=== PATIENT | male | born 1935 | race Caucasian/White ===

== ENCOUNTER 2016-09-06 08:29 | Observation (INO) | payer MEDICARE ==
[2016-09-06] VITALS (9 sets, daily range): BP systolic 115–178; BP diastolic 47–71; PULSE 32–75; RESP 15–20; O2SAT 96–100
[~2016-09-06] VITALS: Ht 172.7 cm; Wt 92.2 kg
[~2016-09-06 08:29] MED LIST: ASP81TEC PO; ATOR80TA PO; GLU500 PO; LEVO750T9 PO; MTP50TCR PO; ZES20 PO
--- NOTE | 2016-09-06 08:35 | ED.REPORT ---
HPI-Chest Pain 40 and Over Date of Service Sep 06, 2016 ED Provider: Pelon Gambino Patient is a 81 y/o male w/ a hx DM, HTN, hyperlipidemia, and prostate cancer, on warfarin presenting to the ED with his c/o chest pressure. The patient has been experiencing chest pressure and tingling in his L hand with exertion for the past month. He also notes feeling chest pressure when bending over and then standing straight. Most recently, he experienced these symptoms when walking across the [employer] parking lot yesterday. Concerned, he called his vice president global digital marketing's office and the nurse instructed him to come to the ED. He is asymptomatic upon arrival and has not experienced symptoms since yesterday. Symptoms have been relieved by sitting or resting. He denies nausea, vomiting, lightheadedness, diaphoresis, or any other symptoms. Patient is currently taking metformin, warfarin, aspirin, metoprolol daily He normally takes 3 medications in the morning and the rest at night. He took his medications this morning. His last stress test was done 6-8 months ago. He has had a bypass surgery and aortic value replacement (5 years ago). Currently has a vice president global digital marketing in [place] and is attempting to gain referral for a local vice president global digital marketing. Nursing Notes Stated Complaint: CHEST PRESSURE/TINGLING IN HANDS Chief Complaint: Chest Pain Nursing Notes Reviewed: Yes Allergies: Coded Allergies: No Known Allergies (Verified , 09/06/16) Scheduled Aspirin (Aspirin) 81 Mg Tablet 81 MG PO DAILY Atorvastatin (Lipitor) 80 Mg Tablet 80 MG PO DAILY Lisinopril (Lisinopril) 20 Mg Tablet 20 MG PO DAILY Metformin (Metformin) 500 Mg Tablet 500 MG PO DAILY Metoprolol Succinate ER (Metoprolol Succinate ER) 50 Mg Tab.er.24h 50 MG PO DAILY Tamsulosin ER (Tamsulosin ER) 0.4 Mg Cap.er.24h 0.4 MG PO DAILY Warfarin Sodium (Warfarin Sodium) 5 Mg Tablet 5 MG PO DIRECTED Warfarin Sodium (Warfarin Sodium) 2.5 Mg Tablet 2.5 MG PO DAILY General Time Seen by MD: 08:35 Chief Complaint Chest pressure Hx Obtained From: Patient Arrived By: Walk-in Sudden in Onset?: No Onset Occurred: More than a week ago... (1 month) Symptom Duration: Intermittent Similar Sx Previous: Yes Risk Factors )( CAD Risk Stratification Diabetes mellitus Hyperlipidemia Hypertension Known CAD Risk factors reviewed )( TAD Risk Stratification Aortic valve disease High intensity wt lifting Hypertension Risk factors reviewed )( PE Risk Stratification No Estrogen Medicine / BCP's, No , No Previous PE, No Surgery Last 60 Days Risk factors reviewed Past Medical History Past Medical History Notes: Stress test done Dec or Jan 2016 CAD Past Medical History Prostate cancer Reports: Diabetes mellitus, Hyperlipidemia, Hypertension Past Surgical History Stent placed Aortic value replacement Bypass surgery Smoking History Unknown if Ever Smoker Social History Other Social History: Good social support, Ambulatory Status Independent Review of Systems Review of Systems Note: +tingling in hands with exertion Constitutional: Denies: Fever Cardiovascular: Reports: Chest pain GI: Denies: Diarrhea, Nausea, Vomiting Skin: Denies Diaphoresis Neurologic: Denies: Lightheaded Complete sys rev & neg: except as marked. Physical Exam Initial Vital Signs Vital Signs (First) Date Time Temp Pulse Resp B/P Pulse Ox O2 Delivery O2 Flow Rate FiO2 09/06/16 08:30 36.5 75 19 178/57 100 Room Air Initial VS: Reviewed, Vital signs abnormal Head / Eyes: Atraumatic, Normocephalic Neck: Full range of motion Skin: Warm, Dry, No cyanosis Neurologic: Alert, Oriented, Nonfocal Psychiatric: Mood/affect normal, Behavior normal, Normal thought content General/Constitutional: Awake, Alert, No acute distress, Well appearing Respiratory / Chest: Breath sounds NL, Breath sounds = bilat, No respiratory distress Cardiovascular: Heart rate NL Heart Rate / Rhythm: Positive: Irreg irregular rhythm Heart Sounds / Murmur: Positive: Systolic murmur present.. (II/) Loud s2 click Abdomen: Soft, Non-tender Lower Extremity / Pelvis / MS: No deformity Trace edema Interpretation & Diagnostics Lab Results Interpretation Result Diagram: 09/06/16 0901 09/06/16 0901 Test 09/06/16 09:01 White Blood Count 5.7th/mm3 (3.8-10.1) Red Blood Count 3.88mil/mm3 (4.40-5.80) Hemoglobin 12.6g/dL (13.8-17.2) Hematocrit 38.1% (41.0-50.0) Mean Corpuscular Volume 98.2fL (81-100) Mean Corpuscular Hemoglobin 32.5pg (27.0-35.0) Mean Corpuscular Hemoglobin Concent 33.1% (32.0-37.0) Red Cell Distribution Width 13.4% (12.3-15.4) Platelet Count 130bil/L (150-400) Neutrophils (%) (Auto) 57.0% (40-74) Lymphocytes (%) (Auto) 31.3% (14-46) Monocytes (%) (Auto) 9.7% (4-12) Eosinophils (%) (Auto) 1.6% (0-5) Basophils (%) (Auto) 0.2% (0-3) Prothrombin Time 28.1sec (8.1-12.5) Prothromb Time International Ratio 2.58ratio Sodium Level 137mEq/L (134-144) Potassium Level 5.4mEq/L (3.5-5.2) Chloride Level 100mEq/L (97-108) Carbon Dioxide Level 24mmol/L (18-29) Blood Urea Nitrogen 13mg/dL (8-27) Creatinine 0.88mg/dL (0.76-1.27) Estimat Glomerular Filtration Rate 88mL/min (>59) Glucose Level 143mg/dL (60-99) Calcium Level 9.3mg/dL (8.5-10.1) Magnesium Level 1.9mg/dL (1.6-2.6) Total Bilirubin 0.6mg/dL (0.0-1.2) Aspartate Amino Transf (AST/SGOT) 21U/L (0-50) Alanine Aminotransferase (ALT/SGPT) 15U/L (0-44) Alkaline Phosphatase 59U/L (25-160) Total Creatine Kinase 191U/L (21-232) Creatine Kinase MB 3.2ng/mL (0.0-10.4) Creatine Kinase MB % % (0.0-5.0) Troponin T < 0.010ug/L (0.0-0.011) Total Protein 6.3g/dL (6.4-8.4) Albumin 4.1g/dL (3.4-5.0) Thyroid Stimulating Hormone (TSH) 2.620uIU/mL (0.450-4.500) Hold May Top Tube Received (Received) ECG Interpretation ECG Interpretation: Atrial fibrillation with a rate of 55 No acute changes Time: 08:45 Interpreted by: ED physician X-Ray Chest Interpretation Chest Xray Interpretation: IMPRESSION: No acute cardiopulmonary disease process. Dictated by: Meli Harman MD, PhD on 09/06/2016 at 9:20 Approved by: Meli Harman MD, PhD on 09/06/2016 at 9:20 View: Portable, 1 view Interpretation / Wet Read by: Interpret - Radiologist Re-Eval/Medical Decision Time of Eval: 08:45 Re-Evaluation/Progress Note: Patient does not want to be admitted. Because he has been experiencing symptoms for over a month, he would like an outpatient work up if his case is not urgent. Time of Eval: 10:37 Re-Evaluation/Progress Note: Patient rechecked. Discussed risk of going home and offered admission. Discussed with patient plan of admission. Patient understands and agrees with the plan. All questions answered at this time. Consultation #1: Referral / Consult Name: Maru Sibley MD Consulted With: Cardiology Call Returned at: 09:54 Dianeticist: Will see patient, Agrees with eval, Agrees with plan Note: Discussed patients case. Pt is not safe to go home because of progressively slowing HR. Agrees to consult. Consultation #2: Referral / Consult Name: Sylvester Lay MD Consulted With: Hospitalist Call Returned at: 11:43 Dianeticist: Will see patient, Agrees with eval, Agrees with plan, Accepts admit Note: Discussed pt case. Agrees to admit. Counseled Regarding: Diagnosis, Lab results, Need for admission Discharge & Departure Primary Impression: Unstable angina Additional Impression: Symptomatic bradycardia Disposition: ADMITTED TO HOSPITAL Discharge Condition All VS Reviewed: Yes Condition: Stable Referrals: Ramana Gustafson DO (PCP) Shin Attestation Portions of this note were transcribed by Teresa Mcgee & Srinivasa Murrell. I, Dr. Clancy personally performed the history, physical exam and medical decision-making; I reviewed and confirmed the accuracy of the information in the transcribed note. Signed by: Teresa Murrell.Shin, 09/06/2016 and 11:45. copies to: Ramana Gustafson Kirk H MD Sep 06, 2016 08:35 Teresa Mcgee Sep 06, 2016 08:48 SRINIVASA MURRELL Sep 06, 2016 09:31
[2016-09-06 09:14] LABS: BASOPHILS % (AUTO) 0.2 % (0-3); EOSINOPHILS % (AUTO) 1.6 % (0-5); MONOCYTES % (AUTO) 9.7 % (4-12); Mean Corpuscular Hemoglobin 32.5 pg (27.0-35.0); Mean Corpuscular Volume 98.2 fL (81-100); Platelet Count 130 bil/L (150-400)
--- NOTE | 2016-09-06 09:22 | DRSVH ---
PROCEDURE: X-RAY CHEST ONE VIEW, PORTABLE ([id number]) INDICATIONS: CHEST PAIN TECHNIQUE: One view of the chest was acquired. COMPARISON: [facility], , CHEST 1VW (PORTABLE), 05/28/2009, 2:53. FINDINGS: Surgical changes and devices: Median sternotomy wires Lungs and pleura: No pleural effusions or pneumothorax. Lungs are clear. Mediastinum: Mediastinal contours appear normal. Heart size is normal. Bones and chest wall: No suspicious bony lesions. Overlying soft tissues appear unremarkable. IMPRESSION: No acute cardiopulmonary disease process. Dictated by: Meli Harman MD, PhD on 09/06/2016 at 9:20 Approved by: Meli Harman MD, PhD on 09/06/2016 at 9:20
[2016-09-06 09:50] LABS: INR 2.58 ratio
[2016-09-06 10:01] LABS: TROPONIN T < 0.010 ug/L (0.0-0.011)
[2016-09-06 10:05] LABS: Magnesium 1.9 mg/dL (1.6-2.6)
[2016-09-06] MEDS ORDERED: TAMS0.4C29 PO (10:06)
[2016-09-06] MEDS ORDERED: WARF5TAB7 PO (10:10)
[2016-09-06] MEDS ORDERED: WARF2.5T82 PO (10:10)
[2016-09-06] MEDS ORDERED: Alum-Mag Hydrox-Simeth 30 mL Suspension PO PRN (11:55)
[2016-09-06] MEDS ORDERED: Atropine 1 mg/10 mL (Code) Syringe IVPUSH PRN (11:55)
[2016-09-06] MEDS ORDERED: Polyethylene Glycol (PEG) 17 Gm Powder PO PRN (11:55)
[2016-09-06] MEDS ORDERED: Senna-Docusate 8.6-50 mg Tablet PO PRN (11:55)
[2016-09-06] MEDS: 0.9% Sodium Chloride 1,000 ML IV SCH ×3 (11:55→21:55)
[2016-09-06] MEDS ORDERED: Ondansetron 2 mg/mL 2 mL Inj IVPUSH PRN (11:55)
--- NOTE | 2016-09-06 12:03 | PCM.HPMED ---
Subjective Date of Service Sep 06, 2016 Primary Provider: Admitting Physician: Sylvester Lay MD Primary Care Physician: Ramana Gustafson DO Attending Physician: Sylvester Lay MD Chief Complaint: Chest pain, bradycardia History of Present Illness: 81-year-old male who had stents last done in the , had valve replacement approximately 6 years ago with single-vessel bypass presumably right circumflex presents after 1 months worsening exertional chest pain. He tells me he noticed about a month ago little tightness in his chest and radiating down to his left hand around his shoulder that began occurring about a month ago. He noticed it [place]. He decided to come here after noticing it was happening on a flat at [facility] today. He called his primary care or the social work program coordinator's office and they advised him to go to the emergency room. From the perspective of his chest pain the patient feels like he could go home but the fact that his heart rate dropped into the 20s is more alarming to him. I had to explain to him that the chest pain was easily as alarming as the slow heart rate in him. Over the last month he has noticed some pedal edema but he has not had symptoms of orthopnea or PND. No fevers no chills no cough no other symptoms. Review of Systems: Gen.: No fevers chills weight loss weight gain Eyes: no visual disturbances or blurring vision HEENT: No nose/throat drainage, no pain in ears or throat, no hearing loss Lymph: No lymph nodes noted Cardiac: orthopnea, PND, palpitations , dyspnea on exertion + chest pain with exertion, pedal edema Pulmonary: no cough, wheezing or bringing up of sputum GI: No anorexia nausea vomiting blood or black in the stool : no dysuria hematuria urinary frequency or decrease in urine output Musculoskeletal: Joint swelling no joint pain no new muscle aches or back pain Neuro: No syncope, seizures no loss of consciousness no new focal weakness, numbness or tingling Psychiatric: New new anxiety insomnia or depression Endocrine: No new heat or cold intolerances polyuria or polydipsia Hematology: No lymphadenopathy or easy bleeding or bruising noted skin: No new rashes, stasis dermatitis Allergies Coded Allergies: No Known Allergies (Verified , 09/06/16) Home Medications Aspirin-Expunged Drug, Do Not Renew! (Aspirin EC-Expunged Drug, Do Not Renew!) 81 Mg Tablet 81 MG PO DAILY Atorvastatin-Expunged Drug, Do Not Renew! (Atorvastatin-Expunged Drug, Do Not Renew!) 80 Mg Tablet 80 MG PO DAILY Lisinopril-Expunged Drug, Do Not Renew! (Lisinopril-Expunged Drug, Do Not Renew! ) 20 Mg Tablet 20 MG PO DAILY Metformin-Expunged Drug, Do Not Renew! (Metformin-Expunged Drug, Do Not Renew!) 500 Mg Tablet 500 MG PO IN THE EVENING Metoprolol Suc-Expunged Drug, Do Not Renew! (Metoprolol Suc-Expunged Drug, Do Not Renew!) 50 Mg Tber 50 MG PO DAILY Tamsulosin ER (Tamsulosin ER) 0.4 Mg Cap.er.24h 0.4 MG PO DAILY Warfarin Sodium (Warfarin Sodium) 5 Mg Tablet 5 MG PO DIRECTED Warfarin Sodium (Warfarin Sodium) 2.5 Mg Tablet 2.5 MG PO DAILY PMH Stress test done Dec or Jan 2016 CAD Past Medical History Prostate cancer Reports: Diabetes mellitus, Hyperlipidemia, Hypertension Past Surgical History Stent placed after balloon angioplasty Aortic value replacement [facility] Bypass surgery [facility] Smoking History-nonsmoker Social History Other Social History: Good social support, Ambulatory Status Independent Family history- no known history of early cancer or heart disease or diabetes Social History Hx Alcohol Use: Yes ([employer]) Hx Substance Use: No Hx Tobacco Use: No Smoking Status: Unknown if Ever Smoker Exam Vital Signs Vital Sign - Last Date Time Temp Pulse Resp B/P Pulse Ox O2 Delivery O2 Flow Rate FiO2 09/06/16 11:40 49 17 131/54 96 Room Air 09/06/16 08:30 36.5 Exam Gen.- A+ O 3 no apparent distress. Eyes- open conjunctiva clear, pupils equal nonicteric Mouth- oral mucosa moist, no exudate ENT- ears normal, nose normal Neck- supple/trach midline CVS- RRR no gallop, 3/6 systolic ejection murmur radiating to neck Lungs CTA GI- NABS/NT soft Musc- moving 4 no obvious deformity Neuro- cranial nerves II through XII intact to gross examination, nonfocal Skin- warm and dry, no rashes/lesions/wounds noted Psych- pleasant and appropriate, Lab and Diagnostics Result Diagram: 09/06/1690009/06/16900 X-Rays, CTs and MRIs CXR: Meli Harman MD, PhD on 09/06/2016 at 9:20 IMPRESSION: No acute cardiopulmonary disease process. Dictated by: Meli Harman MD, PhD on 09/06/2016 at 9:20 12-lead ECG EKG concurrently reviewed by Alireza 09/06 Atrial fibrillation with rate of 55, QTC [address] segment changes. Assessment & Plan 81-year-old male with long history of coronary artery disease coming in with 1 month hx arm pain and chest pain typical for his angina suddenly worse. #Chest pain- discuss with cardiology prior to running the test as patient has history and symptoms very concerning for angina. -r/o [place] by enzymes, will order Myoview for the morning -Echocardiogram pending -Cardiology consulted from ED thank you Dr. Sibley pending Bradycardia-hold metoprolol, rate as low as 26 but patient was not symptomatic. hx CAD/HTN/lipids-continue statin, aspirin and lisinopril hold metoprolol secondary to bradycardia, when necessary amlodipine ordered A. fib on warfarin-holding warfarin as patient may be having intervention. Diabetes-continuing metformin, low-dose sliding scale insulin Prophylaxis- DVT not indicated therapeutic on warfarin start Lovenox/SCDs once patient INR less than 2.0, GI not indicated Disposition- full code from home Sylvester Lay MD Sep 06, 2016 12:03
[2016-09-06] MEDS ORDERED: DEXTROSE 10% IV ONE (12:05)
[2016-09-06] MEDS ORDERED: Glucose 40% Oral Gel 15 Gm Tube PO PRN (12:05)
[2016-09-06] MEDS ORDERED: DEXTROSE 10% IV PRN (12:19)
[2016-09-06] MEDS ORDERED: ASPI-973 PO (12:40)
[2016-09-06] MEDS ORDERED: LISI-567 PO (12:40)
[2016-09-06] MEDS ORDERED: ATOR80TA PO (12:40)
[2016-09-06] MEDS ORDERED: METF500T4 PO (12:40)
[2016-09-06] MEDS ORDERED: METO-272 PO (12:41)
[2016-09-06 13:15] LABS: Creatine Kinase 191 U/L (21-232)
--- NOTE | 2016-09-06 13:58 | NUR ---
Admit: Pt admitted to room 3027. Arrived to [facility] [place]ur[place] from ED at 1220, no c/o pain or SOB upon arrival to unit. Ambulated into bathroom by himself with stable gate. IVF at 80 ml/hr, tele afib 50-60's with occasional pauses, pt is asymptomatic of bradycardia. at bedside. Call light in reach.
[2016-09-06 14:36] LABS: APPEARANCE,URINE CLEAR (CLEAR,HAZY); COLOR,URINE YELLOW (YELLOW); OCCULT BLOOD,URINE NEGATIVE (NEGATIVE); UROBILINOGEN,URINE NORMAL (NORMAL)
--- NOTE | 2016-09-06 14:50 | PCM.PHAPRO ---
Progress Chest pain, bradycardia Warfarin per pharmacy: Indication: a.fib home dose: 2.5 thursday and thursday, 5mg aod 09/06 INR 2.58 Patient took daily dose before admission today. No dose today. Will continue to follow and dose as appropriate. RTM PharmD. Vasyl Madrid Pharm.D Sep 06, 2016 14:50
[2016-09-06] MEDS: Sodium Chloride LOK Flush 10 mL Syringe IVFLUSH SCH (16:30)
[2016-09-06] MEDS: Insulin LISPRO 300 Unit/3 mL Inj SUBQ SCH ×2 (17:27→22:00)
--- NOTE | 2016-09-06 18:16 | DRSVH ---
[facility] [address] [place] [address] Echocardiogram Report Name: CASTILLO VAZQUEZ HStudy Date: 09/06/2016 Height: 68 in Hospital Exam Location: [facility] Weight: 204 lb Gender: Male BSA: 2.1 m2 : 1935 Age: 81 yrs BP: 155/67 mmHg Reason For Study: Chest pain Ordering Physician: Performed By: [facility] Interpretation Summary 1. Normal left ventricular size, wall thickness and systolic function with an estimated EF of 60-65% 2. Mildly dilated right ventricle with low normal systolic function. 3. 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 Compared to the previous study (images/report reviewed), the atria are more dilated Procedure: A two-dimensional transthoracic echocardiogram with color flow and Doppler was performed. The study quality was technically adequate. Comparison is made with the echocardiogram of 10-15-11. The patient was in atrial fibrillation with heart rates between 46-58 bpm during the exam. Left Ventricle: The left ventricle is normal in size. There is normal left ventricular wall thickness. The ejection fraction is estimated to be 60-65%. No obvious wall motion abnormalities. Diastolic function could not be accurately assessed due to atrial fibrillation. Right Ventricle: The right ventricle is mildly dilated. Right ventricular systolic function is borderline reduced. Atria: The left atrium is severely dilated. The right atrium is severely dilated. A patent foramen ovale is present. Mitral Valve: The mitral valve leaflets appear mildly thickened, but open well. The mitral valve leaflets are slightly calcified. There is trace mitral regurgitation. Aortic Valve: There is a bioprosthetic aortic valve. The prosthetic aortic valve is well-seated. The doppler velocity index is within normal limits. There is mild to moderate aortic regurgitation. Tricuspid Valve: The tricuspid valve leaflets are thin and pliable. There is mild tricuspid regurgitation. The right ventricular systolic pressure is estimated at 39 mmHg assuming a right atrial pressure of 3 mm Hg. Pulmonic Valve: The pulmonic valve is not well seen, but is grossly normal. There is trace pulmonic regurgitation. Great Vessels: The aortic root is normal size. The aortic arch is at the upper limits of normal in size. The IVC is of normal diameter and collapses greater than 50% with a sniff. This suggests a low right atrial pressure of 3 mm Hg. Pericardium/ Pleura There is no pericardial effusion. There is no pleural effusion. MMode/2D Measurements & Calculations LVIDd: 4.7 cm LA dimension: 4.7 cm RA long axis LVOT diam LVIDs: 3.2 cm FS: 30.6 % LA A2 area: 30.1 cm RA area AoV Opening IVSd: 1.1 cm LA A4 area: 26.8 cm LVPWd: 1.0 cm LA length (vol): 6.4 cm: 29.1 cm Ao root diam LA vol: 106.4 ml RA vol LA vol index : 108.ml Aortic Jxn RA : 52.6 mm/ asc Aorta IVC diam: 1.8 cm RVDd major Diam: 3.6 cm : 6.3 cm LV henry. diameter/BSA LV sys. diameter/BSA RVD1 (basal) RVD2 (mid) (cm/m^2): 2.3 (cm/m^2): 1.6 : 3.6 cm Doppler Measurements & Calculations Ao V2 max MV P1/2t: 59.7 msec Med Peak E' Michael TR max michael : 265.8 cm/sec MVA(VTI): 4.1 cm2 : 299.2 cm/sec Ao max PG Lat Peak E' Michael TR max PG : 28.3 mmHg : 35.8 mmHg Ao mean PG PA V2 max : 14.5 mmHg : 81.7 cm/sec LVOT Max Michael PA mean PG : 85.1 cm/sec LAURA(I,D): 1.5 cm PA Accel Time sev ratio: 0.39 : 0.13 sec AI P1/2t : 516.4 msec AI dec slope : 268.1 cm/s2c MV V2 mean MV P1/2t max michael Ao V2 mean LV V1 max PG : 52.2 cm/sec : 175.5 cm/sec MV mean PG MVA(P1/2t): 3.7 cm2 Ao V2 VTI: 60.1 cm LV V1 VTI LAURA(V,D): 1.3 cm2 : 23.5 cm MV V2 VTI: 22.4 cm PA V2 mean LAURA indexed to BSA : 49.9 cm/sec (cm^2/m^2): 0.75 Reading Physician:06:15 PM
[2016-09-07] MEDS: Sodium Chloride LOK Flush 10 mL Syringe IVFLUSH SCH ×2 (00:02→09:06)
[2016-09-07] MEDS: 0.9% Sodium Chloride 1,000 ML IV SCH ×3 (00:02→12:53)
[2016-09-07 00:09] VITALS: BP 122/52; PULSE 63; RESP 18; O2SAT 97
[2016-09-07 03:25] LABS: BASOPHILS % (AUTO) 0.2 % (0-3); EOSINOPHILS % (AUTO) 1.6 % (0-5); MONOCYTES % (AUTO) 8.9 % (4-12); Mean Corpuscular Hemoglobin 32.4 pg (27.0-35.0); NEUTROPHILS % (AUTO) 56.8 % (40-74); Platelet Count 122 bil/L (150-400)
[2016-09-07 03:37] LABS: INR 2.57 ratio
[2016-09-07 04:17] VITALS: BP 129/63; PULSE 56; RESP 16; O2SAT 96
[2016-09-07 06:16] VITALS: PULSE 56
--- NOTE | 2016-09-07 06:42 | NUR ---
denies pain: pt has denied chest pain/discomfort, SOB. pt states he feel "good". will continue to monitor pt.
[2016-09-07] MEDS: Insulin LISPRO 300 Unit/3 mL Inj SUBQ SCH ×2 (07:39→11:44)
--- NOTE | 2016-09-07 07:45 | PCM.PHAPRO ---
Progress Chest pain, bradycardia RPh RTM RTM Date Sep 07-Sep INR 2.58 2.57 INR change -0.01 Warf Dose 5MG (AT HOME) NO DOSE TODAY 2.5 Vasyl Madrid Pharm.D Sep 07, 2016 07:45
[2016-09-07 09:05] VITALS: PULSE 52
[2016-09-07 10:35] VITALS: BP 118/69; PULSE 71; RESP 17; O2SAT 98
--- NOTE | 2016-09-07 13:23 | PCM.DIMED ---
Discharge Instructions Date of Service Sep 07, 2016 Dates of Hospitalization Sep 06, 2016 at 11:50 Discharge Diagnosis Discharge Diagnosis Bradycardia, Test Results Test Results Only first part of Myoview was completed there is a small area of attenuation it would have been nice to have resting portion for comparison. We are however reassured by minimal symptoms on treadmill and recent normal Myoview. Diet Discharge Diet: Heart Healthy Activity Discharge Activity: No restrictions Call your provider Call your provider for: Shortness of breath, Chest pain Patient Instructions Patient Instructions Resume home medications except for metoprolol at half the dose from 50 mg to 25 mg. Follow-up plan Follow-up in cardiology with Dr. Sibley Follow-up Provider: Ramana Gustafson DO Follow-up with PCP in: Other (call probably does not need to be seen) Provider: Maru Sibley MD Follow-up in: Other (call she will squeeze she will squeeze you into her clinic ) Sylvester Lay MD Sep 07, 2016 13:23
[2016-09-07] MEDS ORDERED: METO25TA99 PO (13:25)
--- NOTE | 2016-09-07 13:29 | DRSVH ---
PROCEDURE: EITHER REST OR STRESS ONLY Exercise myocardial perfusion SPECT; gated images not acquired. RADIOPHARMACEUTICAL: 20.5 mCi Tc-99m tetrafosmin IV at peak exercise. INDICATIONS: CHEST PAIN AND CAD. TECHNIQUE: Radiopharmaceutical was injected at peak stress test. SPECT images were obtained. SPECT myocardial perfusion images were displayed in short axis, horizontal long axis, and vertical long ax is views. Images were reviewed using [employer] software. COMPARISON: None. CARDIAC STRESS: A standard Juan M treadmill exercise tolerance test was performed by the patient unde r the supervision of an attending staff. The patient exercised for 3 minutes and 13 seconds. Hemodynamic data: There is normal blood pressure and an accelerated heart response to exercise. Symptoms: Patient denied anginal chest pain during exercise. He reported minor tingling of his left hand EKG: The baseline ECG shows atrial fib with nonspecific ST/T changes. With stress, there were 0.5 m m up[address] depressions seen (with high atrial rates 143 bpm) FINDINGS: Raw data: There is good labeling of myocardium by radiotracer. No significant motion artifacts. Left ventricular function: Gated images were not able to obtained to assess wall motion and ejection fraction, due to irregular heart rate. Myocardial perfusion: There is a small areas of mild to moderately decreased uptake affecting the di stal inferolateral wall that shows improvement on the prone images with only mild persistence. No ot her imaging defects appreciated. IMPRESSION: 1. Appropriate blood pressure and accelerated heart rate response (atrial fib) to exercise. 2. No chest pain. Minor left hand tingling with stress. 0.[address] changes with high atrial rates (r esolving with slowing of heart rate). 3. Without rest images for comparison cannot absolutely determine if the residual mild decreased upta ke affecting the inferolateral wall indicates a small area of mild ischemia in this distribution. 4. Gated images were not obtained Dictated by: Maru Sibley M.D. on 09/07/2016 at 13:18 Approved by: Maru Sibley M.D. on 09/07/2016 at 13:28
--- NOTE | 2016-09-07 13:31 | PCM.DC.MED ---
Discharge Summary Date of Service Sep 07, 2016 Dates of Hospitalization Date of Hospital Admission Sep 06, 2016 at 11:50 Date of Discharge: Sep 07, 2016 Providers: Admitting Physician: Mariposa Lay MD Primary Care Physician: Ramana Gustafson DO Attending Physician: Mariposa Lay MD Diagnosis at Time of Discharge Diagnosis at Time of Discharge Bradycardia, Consultations Maryjo, Cardiology Procedures XRay, CTs & MRIs CXR: Meli Harman MD, PhD on 09/06/2016 at 9:20 IMPRESSION: No acute cardiopulmonary disease process. Dictated by: Meli Harman MD, PhD on 09/06/2016 at 9:20 ECG 12 Lead EKG concurrently reviewed by Alireza 09/06 Atrial fibrillation with rate of 55, QTC [address] segment changes. Cardiac Echo Impression Echocardiogram Report: Chelo Sibley on 09/06/2016 1. Normal left ventricular size, wall thickness and systolic function with an estimated EF of 60-65% 2. Mildly dilated right ventricle with low normal systolic function. 3. 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 Compared to the previous study (images/report reviewed), the atria are more dilated Reading Physician:06:15 PM Other Diagnostics Exercise stress test negative no resting portion done formal read pending. Brief History 81-year-old male who had stents last done in the , had valve replacement approximately 6 years ago with single-vessel bypass presumably right circumflex presents after 1 months worsening exertional chest pain. He tells me he noticed about a month ago little tightness in his chest and radiating down to his left hand around his shoulder that began occurring about a month ago. He noticed it mostly [place]. He decided to come here after noticing it was happening on a flat at [facility] today. He called his primary care or the footwear sales leader's office and they advised him to go to the emergency room. From the perspective of his chest pain the patient feels like he could go home but the fact that his heart rate dropped into the 20s is more alarming to him. I had to explain to him that the chest pain was easily as alarming as the slow heart rate in him. Over the last month he has noticed some pedal edema but he has not had symptoms of orthopnea or PND. No fevers no chills no cough no other symptoms. Hospital Course 81-year-old male with long history of coronary artery disease coming in with 1 month hx arm pain and chest pain typical for his angina suddenly worse. 09/07 patient got admitted metoprolol was held, heart rate came up had a normal echocardiogram and cardiology consult was unrevealing. Stress portion of Myoview heart responded nicely recommendation to resume half dose metoprolol from Dr. Sibley. Patient to follow up with cardiology Dr Sibley per patient request. Resuming warfarin and metformin on discharge. These were both held in anticipation of potential procedure. #Chest pain- discuss with cardiology prior to running the test as patient has history and symptoms very concerning for angina. -r/o'd NM by enzymes, Myoharjit pending -Echocardiogram as above -Cardiology consulted from ED thank you Dr. Sibley Bradycardia-hold metoprolol, rate as low as 26 but patient was not symptomatic. hx CAD/HTN/lipids-continue statin, aspirin and lisinopril hold metoprolol secondary to bradycardia, when necessary amlodipine ordered A. fib on warfarin-holding warfarin as patient may be having intervention. Diabetes-continuing metformin, low-dose sliding scale insulin Prophylaxis- DVT not indicated therapeutic on warfarin start Lovenox/SCDs once patient INR less than 2.0, GI not indicated Disposition- full code from home Exam Vital Signs (Last) Date Time Temp Pulse Resp B/P Pulse Ox O2 Delivery O2 Flow Rate FiO2 09/07/16 10:35 36.5 71 17 118/69 98 Room Air Test 09/06/16 09:01 09/06/16 13:20 09/07/16 02:41 09/07/16 08:35 Hemoglobin A1c 6.4% (4.8-5.6) Magnesium Level 1.9mg/dL (1.6-2.6) Total Bilirubin 0.6mg/dL (0.0-1.2) Aspartate Amino Transf (AST/SGOT) 21U/L (0-50) Alanine Aminotransferase (ALT/SGPT) 15U/L (0-44) Alkaline Phosphatase 59U/L (25-160) Total Creatine Kinase 191U/L (21-232) Creatine Kinase MB 3.2ng/mL (0.0-10.4) Creatine Kinase MB % % (0.0-5.0) Total Protein 6.3g/dL (6.4-8.4) Albumin 4.1g/dL (3.4-5.0) Thyroid Stimulating Hormone (TSH) 2.620uIU/mL (0.450-4.500) Hold Amy Top Tube Received (Received) Urine Color Yellow (YELLOW) Urine Appearance Clear (CLEAR,HAZY) Urine pH 7.0 (5.0-8.0) Urine Specific [place] 1.010 (1.003-1.035) Urine Protein Negativemg/dL (NEG,TRACE) Urine Glucose (UA) Negativemg/dL (NEGATIVE) Urine Ketones Negativemg/dL (NEGATIVE) Urine Occult Blood Negative (NEGATIVE) Urine Nitrite Negative (NEGATIVE) Urine Bilirubin Negative (NEGATIVE) Urine Urobilinogen Normalmg/dL (NORMAL) Urine Leukocyte Esterase Negative (NEGATIVE) Urine RBC 0-2/hpf (0-2) Urine WBC 0-5/hpf (0-5) Urine Epithelial Cells Occasional/hpf (NONE-MOD) Urine Crystals None seen (NONE SEEN) Urine Bacteria None/hpf (NONE-FEW) Urine Hyaline Casts None/lpf (NONE) Urine Granular Casts None seen (NONE SEEN) Urine Waxy Casts None seen (NONE SEEN) Urine Red Blood Cell Casts None seen (NONE SEEN) Urine White Blood Cell Casts None seen (NONE SEEN) Urine Mucus None seen (None Seen) Urine Trichomonas None seen (NONE SEEN) Urine Yeast None (NONE SEEN) Urinalysis Comment None White Blood Count 4.4th/mm3 (3.8-10.1) Red Blood Count 3.67mil/mm3 (4.40-5.80) Hemoglobin 11.9g/dL (13.8-17.2) Hematocrit 35.6% (41.0-50.0) Mean Corpuscular Volume 97.0fL (81-100) Mean Corpuscular Hemoglobin 32.4pg (27.0-35.0) Mean Corpuscular Hemoglobin Concent 33.4% (32.0-37.0) Red Cell Distribution Width 13.7% (12.3-15.4) Platelet Count 122bil/L (150-400) Neutrophils (%) (Auto) 56.8% (40-74) Lymphocytes (%) (Auto) 32.0% (14-46) Monocytes (%) (Auto) 8.9% (4-12) Eosinophils (%) (Auto) 1.6% (0-5) Basophils (%) (Auto) 0.2% (0-3) Prothrombin Time 28.0sec (8.1-12.5) Prothromb Time International Ratio 2.57ratio Sodium Level 139mEq/L (134-144) Potassium Level 4.7mEq/L (3.5-5.2) Chloride Level 103mEq/L (97-108) Carbon Dioxide Level 22mmol/L (18-29) Blood Urea Nitrogen 19mg/dL (8-27) Creatinine 0.76mg/dL (0.76-1.27) Estimat Glomerular Filtration Rate 104mL/min (>59) Glucose Level 112mg/dL (60-99) Calcium Level 8.8mg/dL (8.5-10.1) Triglycerides Level 78mg/dL (0-149) Cholesterol Level 145mg/dL (100-199) LDL Cholesterol, Calculated 69.400mg/dL (0-99) VLDL Cholesterol 15.600mg/dL HDL Cholesterol 60mg/dL (>39) Cholesterol/HDL Ratio 2.42 (0.0-4.4) Troponin T 0.010ug/L (0.0-0.011) Discharge Medications Discharge Medications Aspirin (Aspirin) 81 Mg Tablet 81 MG PO DAILY (Reported) Atorvastatin (Lipitor) 80 Mg Tablet 80 MG PO DAILY (Reported) Lisinopril (Lisinopril) 20 Mg Tablet 20 MG PO DAILY (Reported) Metformin (Metformin) 500 Mg Tablet 500 MG PO DAILY (Reported) Metoprolol Succinate ER (Metoprolol Succinate ER) 25 Mg Tab.er.24h 25 MG PO DAILY Prescribed by: MARIPOSA LAY MD Tamsulosin ER (Tamsulosin ER) 0.4 Mg Cap.er.24h 0.4 MG PO DAILY (Reported) Warfarin Sodium (Warfarin Sodium) 5 Mg Tablet 5 MG PO DIRECTED (Reported) Warfarin Sodium (Warfarin Sodium) 2.5 Mg Tablet 2.5 MG PO DAILY (Reported) Followup Plan Disposition: Home Follow-up plan Follow-up in cardiology with Dr. Sibley Discharge Diet: Heart Healthy Discharge Activity: No restrictions Patient Instructions Resume home medications except for metoprolol at half the dose from 50 mg to 25 mg. Follow-up Provider: Ramana Gustafson DO Follow-up with PCP in: Other (call probably does not need to be seen) Provider: Maru Sibley MD Follow-up in: Other (call she will squeeze she will squeeze you into her clinic ) Time spent Creatinine 30 minutes copies to: Ramana Gustafson DO; Maru Sibley MD, Andris E MD Sep 07, 2016 13:31
[2016-09-07 13:39] VITALS: BP 133/63; PULSE 66; RESP 18; O2SAT 98
--- NOTE | 2016-09-07 13:39 | NUR ---
Social Work-initial assessment/ discharge: Data:See initial assessment. Pt is a 81 y/o male who was admitted on 09/06/16 for unstable angina per H&P. Pt's insurance is [employer] and PCP is Ramana Gustafson DO. EMR Reviewed. SW met with pt and Ellen at bedside, SW role explained. Pt is alert and oriented x3. Pt resides at home with his on [address] where he remains independent with ADLs. Pt does not use any DME and drives. Pt has no HH or SNF history. Pt has no termite control representative care insurance or VA benefits. SW discussed DPOA/ advanced directive, pt confirms he has completed this, SW encouraged a copy to be brought in. Pt is ready to discharge home today. Pt has been up independent in his room. Pt's daughter to provide transport home today. SW provided phone number and plan on white board in room. No discharge needs identified. All updated and agreeable to plan. Assessment:Pt who is independent at baseline. Plan:Pt to discharge home today via POV. No discharge needs identified. All updated and agreeable to plan. JESSICA Quintana Addendum: 09/07/16 at 1342 by WESLEY HOGUE Amended: Links added.
--- NOTE | 2016-09-07 13:51 | NUR ---
Case Management: CHING and Medicare Part D Pamphlet delivered. Signed CHING placed in chart. Copy left at bedside. Cristal Tamayo RN
--- NOTE | 2016-09-07 14:27 | CONS ---
[address] [address] CONSULTATION REPORT PATIENT: CASTILLO VAZQUEZ : 1935 MR#: [id number] ADMIT: 09/06/2016 JOB ID: [id number] DATE OF SERVICE: 09/07/2016 CHIEF COMPLAINT: I was asked by Dr. Lay to consult on this patient given coronary disease and possible anginal symptoms. HISTORY OF PRESENT ILLNESS: The patient is an 81-year-old man who has a history of stents and has a history of valve replacement about 60 years ago with a single-vessel bypass. He says it was performed at [facility]. He is followed in our cardiology department, and he presented to the ER with about one month of worsening exertional symptoms. The symptoms are primarily discomfort of his left hand going up to his elbow area. He says this has been happening more frequently with activity. He also says sometimes when he bends over he feels it. Because of this, he was admitted to be ruled out by serial cardiac markers. He is currently chest pain free with no acute EKG changes. He has a history of atrial fibrillation for which he is on Coumadin. He denies chest pressure or chest heaviness. He denies increased shortness of breath. He denies orthopnea, PND, lower extremity edema, presyncope, or syncope. PAST MEDICAL HISTORY/PROBLEM LIST: 1. History of coronary disease. 2. History of prostate cancer. 3. History of aortic valve replacement. 4. History of bypass surgery. MEDICATIONS: At the time of admission included: 1. Aspirin 81 mg a day. 2. Atorvastatin 80 mg daily. 3. Lisinopril 20 mg daily. 4. Metformin 500 mg in the evening. 5. Metoprolol succinate which was 50 mg daily. 6. Tamsulosin 0.5 mg daily. Warfarin sodium. ALLERGIES: No known drug allergies. SOCIAL HISTORY: No tobacco. No significant alcohol. FAMILY HISTORY: No early coronary disease. REVIEW OF SYSTEMS: Overall health: No fevers, chills, night sweats, or weight loss. GI: No problems with ulcers or blood in his stool. : No dysuria, hematuria. Pulmonary: No history of wheezing, asthma, COPD. Neuro: No history of chronic headaches. Endocrine: No heat or cold intolerance to suggest diabetes mellitus. Heme: No easy bruising or bleeding. Musculoskeletal: No joint pain or swelling. Derm: No rashes or skin breakdown. Ophtho: No vision changes. ENT: No difficultly swallowing. No hearing changes. Psych: No acute issues. All review of systems of 12-point review of system are negative. PHYSICAL EXAMINATION: Blood pressure is 133/63. He is afebrile. Sats are 98% on room air. General: In no acute distress. Speaking in full sentences without apparent shortness of breath. Head and neck exam: Normocephalic, atraumatic. Neck: No obvious JV distention. Heart exam: Irregular with a soft systolic murmur at the left sternal border. Lungs sound clear. Abdomen is soft. Back: No CVA tenderness to palpation. Extremities: Warm. No appreciable edema, 1 to 2+ distal pulses. Skin without breakdown appreciated. Neurologic: Alert and oriented x3. Gait is not tested. Psych: Appropriate mood and affect. Vascular: No carotid bruits. ENT: Mucous membranes moist. Ophtho: Vision is grossly normal. LABORATORY AND DIAGNOSTIC STUDIES: EKG shows atrial fibrillation with nonspecific ST-T wave changes. LABORATORIES: Show a white count 4.4, H and H 11.9 and 35.6, platelets of 122,000. Chemistry shows sodium 139, potassium 4.7, chloride and bicarb 103 and 23, respectively. Creatinine 19.76. Troponins all negative. Cholesterol with LDL 69, HDL 60. IMAGING: Showed a chest x-ray with no acute cardiopulmonary disease. An echocardiogram shows a normal size wall thickness and systolic function. Mildly dilated right ventricle with low normal systolic function. Mild to moderate aortic insufficiency with prosthetic aortic valve. The atria were more dilated compared to the last study. OTHER DATA: Today, he walked on the treadmill. It was really limited by a very accelerated heart rate response, as he has been off metoprolol. He had some very minor tingling of his left hand but no chest pain, no chest pressure. Likely nondiagnostic EKG changes which occurred in the setting of very high atrial fibrillation rates. Nuclear imaging was performed. There is an inferolateral defect that definitely improves on the prone images but does not completely normalize. We do not have rest images because he would have to spend the night to have those done, and he would like to defer on that. Therefore, with this we cannot absolutely rule out a small area of minor ischemia in the inferolateral wall. In the ER, he had some fairly low heart rates and also had a heart rates supposedly into the 20s. I am not certain if this was associated with a PVCS. Based upon this, he had is metoprolol held during this admission. PLANS/RECOMMENDATIONS: 1. Because of the very accelerated heart rate response with exercise, I would put him on a slightly lower dose of metoprolol with the idea that perhaps he was not getting an adequate chronotropic response with activity, but he does need some rate control given his rather brisk response that we saw on the treadmill today. 2. Go back on warfarin. 3. We will get him a followup in Cardiology within a couple of weeks to review how he is doing with the adjustment of the metoprolol dose. At that time, if he has recurrent symptoms and we are still not able to rule out ischemia as a cause of his symptoms, would consider cardiac catheterization at that time. However, I want to reiterate that the findings on the stress test were still fairly low risk. I spent an hour reviewing the patient's old records from the clinics, reviewing his echocardiogram, reviewing his stress images, speaking with the patient, and speaking with the hospitalist. IVELISSE
--- NOTE | 2016-09-07 15:25 | NUR ---
Discharge of patient Reviewed discharged instructions with patient and patient's . Both verbalized understanding. Patient discharged via wheelchair with instructions and prescription. IV and Telemetry previously discontinued. Patient left hospital with to home self care.
== END 2016-09-07 15:23 | disposition home or self-care (01) ==
LOC: SED 08:29 → MPC 11:50
PROVIDERS: ADMIT Hospitalist; ATTEND Hospitalist
DX: R00.1 Bradycardia, unspecified (principal); I25.10 Atherosclerotic heart disease of native coronary artery without angina pectoris; I10 Essential (primary) hypertension; Z95.5 Presence of coronary angioplasty implant and graft; Z95.1 Presence of aortocoronary bypass graft; Z87.891 Personal history of nicotine dependence; E78.5 Hyperlipidemia, unspecified; E11.9 Type 2 diabetes mellitus without complications; Z79.84 Long term (current) use of oral hypoglycemic drugs; Z95.2 Presence of prosthetic heart valve; Z79.01 Long term (current) use of anticoagulants; Z85.46 Personal history of malignant neoplasm of prostate; Z79.82 Long term (current) use of aspirin
CPT/HCPCS: 36415; 71010; 78451; 80048; 80053; 80061; 81001; 82550; 82553; 83036; 83735; 84443; 84484; 85025; 85610; 93005; 93017; 99285; A9502; C8929; G0378; J1815; J7030

== ENCOUNTER 2016-10-15 01:35 | Day surgery (SDC) | payer MEDICARE ==
[2016-10-15] VITALS (17 sets, daily range): BP systolic 121–166; BP diastolic 41–71; PULSE 46–72; RESP 16–24; O2SAT 96–100
[~2016-10-15] VITALS: Ht 172.7 cm; Wt 92.7 kg
[~2016-10-15 01:35] MED LIST changes: +ALBU18HF INH; -ASP81TEC PO; +ASPI-973 PO; -GLU500 PO; -LEVO750T9 PO; +LISI-567 PO; +METF500T4 PO; +METO-272 PO; -MTP50TCR PO; +TAMS0.4C29 PO; +WARF2.5T8 PO; +WARF5TAB9 PO; -ZES20 PO
[2016-10-15 07:38] LABS: BASOPHILS % (AUTO) 0.2 % (0-3); EOSINOPHILS % (AUTO) 1.2 % (0-5); MONOCYTES % (AUTO) 9.1 % (4-12); Mean Corpuscular Volume 97.4 fL (81-100); NEUTROPHILS % (AUTO) 64.6 % (40-74); Platelet Count 121 bil/L (150-400)
[2016-10-15 07:40] LABS: INR 1.11 ratio
[2016-10-15] MEDS ORDERED: Heparin 1,000 Units/500 mL NS Premix IV ONE (07:52)
[2016-10-15] MEDS ORDERED: Heparin 1,000 Unit/mL 10 mL Inj ONE (07:52)
[2016-10-15] MEDS ORDERED: Heparin 10,000 Unit/1,000 mL NS Premix IV ONE ×2 (07:52→09:16)
--- NOTE | 2016-10-15 08:15 | NUR ---
Pre Heart Cath Pt arrived to [facility] at 0640, accompanied by . A&O X3. IVs started X2; labs drawn. Admission and med rec completed. Bedside INR 1.2. Pt premedicated and taken to laboratory administrative director at 0810 in stable condition.
[2016-10-15] MEDS ORDERED: fentaNYL-PF 50 mCg/mL 2 mL Inj ONE (08:27)
[2016-10-15] MEDS ORDERED: Nitroglycerin 50,000 mcg/250 mL D5W Premix IV ONE (08:52)
[2016-10-15] MEDS ORDERED: 0.9% Sodium Chloride 1,000 ML IV ONE (10:02)
--- NOTE | 2016-10-15 11:17 | NUR ---
Pt in a.fib, rate dropping to 30-35bpm, Dr. Sibley notified, will continue to monitor pt, pt remains asymptomatic.
--- NOTE | 2016-10-15 14:37 | NUR ---
Post heart cath/Transfer to room Pt returned from powerhouse laborer around 0950. Recovery uneventful. Mild oozing on gauze to right groin site. Pt to be on bedrest until 1500. Report called to Britney Cedeno RN and transferred to room 2028 in stable condition at 1430.
--- NOTE | 2016-10-15 17:37 | NUR ---
Post cath Patient admitted to 2028 from [facility] via bed. A/O x 4, MI'KMAQ, c/o headache, but denies chest pain, nausea or sob. Right groin soft, no hematoma or bruising. Mckay craft sat with sangineous drainage, will monitor closely. Bilat pedal pulses palpable. VSS, tele A fib 50-60's.
--- NOTE | 2016-10-15 17:37 | CS94 ---
[address] [address] DIAGNOSTIC CARDIAC CATHETERIZATION PATIENT: CASTILLO VAZQUEZ : 1935 MR#: [id number] ADMIT: 10/15/2016 JOB ID: [id number] SERVICE DATE: 10/15/2016 PROCEDURES PERFORMED: 1. [place] coronary angiography. 2. Graft angiography. 3. Percutaneous intervention of the principal diagonal vessel. INDICATIONS: This is a gentleman with known history of coronary disease with history of bypass surgery, history of aortic valve placement, now with shortness of breath and intermittent anginal symptoms. He also has a stress test suggesting possible mild lateral ischemia. He presents for further assessment by cardiac catheterization. DESCRIPTION OF PROCEDURE: Informed consent was obtained. The patient was brought into the catheterization laboratory. Bilateral groins were prepped and draped in sterile fashion. The area of the right femoral artery was anesthetized with lidocaine. Using modified Seldinger technique and a micropuncture kit, access was obtained and a 5-Liberian sheath was advanced. A 5-Liberian JL 3.5 catheter was advanced over a wire and used to cannulate the left coronary artery and angiographic views obtained. This catheter was removed and a 5-Liberian JR4 catheter was advanced over a wire and used to cannulate the [place] right coronary artery as well as the saphenous vein graft to the distal right coronary artery and angiographic views obtained. Although a number of stenoses were appreciated, the highest grade stenosis was appreciated in the principal diagonal, in the area of prior stenting. Given the patient's symptoms and the stress test, plans were made for intervention upon this vessel. The current five-Liberian sheath was exchanged over to a 6-Liberian sheath. A 6-Liberian CLS 3.5 guide was advanced over the wire and used to cannulate the left coronary. Heparin was given for anticoagulation. ACTs were checked to make sure they were therapeutic during the case. A ChemDAQ wire was advanced across the area of stenosis. Initially, a 2 mm balloon would not advance across the area of stenosis, therefore a 1.5 x 12 mm balloon was advanced to the area of stenosis and inflated to nominal pressures. Ultimately, this facilitated passage of a 2 x12 mm balloon which was inflated to high pressures. 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 However, flow appeared somewhat improved after intervention. Because it was suspected this would be not easily dilatable by larger balloons or noncompliant balloons, and since the result appeared somewhat improved, plans were made to stop the procedure at this time and if recurrent symptoms to assess with a full stress test with rest and stress images. The case was ended. Angiography of the right femoral access site was reviewed prior to achieving hemostasis with a StarClose device. There were no complications. FINDINGS: Coronaries:. 1. Left main: This vessel is fairly short. Has no evidence of obstructive disease. 2. Left anterior descending artery: This vessel is somewhat diffusely diseased, with no clear obstructive lesions. The principal diagonal vessel has an area of stenting and an area of very high-grade stenosis estimated in the range of 99% in the proximal portion of the stented area. As noted, POBA of this diagonal was performed 3. Circumflex artery: This vessel has mild disease in its proximal segment. In the mid segment there is an eccentric lesion which gives rise to the terminal obtuse marginal branches which may be calcified. The flow in this vessel, however, appears still JORGE-3. 4. Right coronary artery: This vessel has diffuse mild disease in its proximal segment. In the mid conduit segment there is an eccentric stenosis which appears in the range of 60%. There is also a distal stenosis that appears in the range of 70% . There is evidence for competitive flow filling the PDA (from the graft). 5. Saphenous vein graft to PDA: This is widely patent. It has no evidence for post anastomotic stenoses. There is retrograde filling of the left ventricular extension branch through the bifurcation. HEMODYNAMICS: Aortic pressure 136/43, heart rates in the 50s to 70s. MEDICATIONS GIVEN DURING THE CASE: Please see the laborer yard log for sedation. The patient was given heparin for anticoagulation. At the end of the case the patient was given 600 mg of Plavix. He had already been given aspirin. The patient is also going to have Coumadin as part of his anticoagulation for atrial fibrillation. IMPRESSION: 1. Evidence for high-grade affecting the principal diagonal. This appears to be an area of in-stent restenosis. It is not clear how chronic this is. This was dilated with balloon angioplasty. There appears to be some benefit after balloon angioplasty, but it was clearly a resistant stenosis. 2. Evidence for at least moderate stenosis affecting the mid circumflex artery is eccentric. 3. No significant disease affecting the left anterior descending artery. 4. The right coronary has serial stenoses, however it has a widely patent graft filling the PDA which does retrograde fill the extension branch. There is a stenosis in the beginning of the extension branch which appears in the range of 60%. MTDD
[2016-10-15] MEDS ORDERED: CLOP75TA28 PO (18:48)
[2016-10-16 03:14] VITALS: BP 151/76; PULSE 76; RESP 18; O2SAT 97
[2016-10-16 05:53] LABS: Mean Corpuscular Hemoglobin 32.8 pg (27.0-35.0); Mean Corpuscular Volume 96.7 fL (81-100)
--- NOTE | 2016-10-16 06:15 | NUR ---
Shift note Assumed care 1914. A/O, MILLER, cooperative with care and verbalizes needs appropriately. Rt groin dressing changed, remained c/d/i. Site soft no hematoma or bruising noted, denies pain. Pedal pulses palpable bilaterally. Tele AFib with rate 50-60s, no c/o chest pain. VSS. Report given to oncoming RN.
[2016-10-16 06:17] VITALS: PULSE 68
[2016-10-16 08:12] VITALS: BP 139/70; PULSE 75; RESP 16; O2SAT 95
[2016-10-16] MEDS ORDERED: MeTOProlol XL 25 mg ER24 Tablet PO SCH (08:30)
--- NOTE | 2016-10-16 10:46 | NUR ---
Discharge The pt left the unit at 1045 via wheelchair with his and all his personal belongings. the pt is being transported home by his in a private vehicle. The pt left with his discharge packet of information, including information on new scripts and follow up appointments. The pt and his verbalized understanding of all discharge teaching. He left the unit A&Ox3 with VSS.
== END 2016-10-16 10:50 | disposition home or self-care (01) ==
LOC: SOUO 01:35 → PCC 14:29 → SOUO 10-16 10:50
PROVIDERS: ATTEND Internal Medicine
DX: T82.855A Stenosis of coronary artery stent, initial encounter (principal); I25.119 Atherosclerotic heart disease of native coronary artery with unspecified angina pectoris; I10 Essential (primary) hypertension; E78.5 Hyperlipidemia, unspecified; Z79.01 Long term (current) use of anticoagulants; I48.2 Chronic atrial fibrillation; Z95.4 Presence of other heart-valve replacement; Z79.82 Long term (current) use of aspirin; Z79.84 Long term (current) use of oral hypoglycemic drugs; E11.9 Type 2 diabetes mellitus without complications; Z86.73 Personal history of transient ischemic attack (TIA), and cerebral infarction without residual deficits; Z95.1 Presence of aortocoronary bypass graft
CPT/HCPCS: 36415; 80048; 85025; 85027; 85610; 92920; 93455; 99152; 99153; C1725; C1760; C1769; C1887; J1200; J1644; J2250; J3010; Q9967

== ENCOUNTER 2017-01-02 09:52 | Inpatient (IN) | payer MEDICARE ==
[2017-01-02] VITALS (11 sets, daily range): BP systolic 103–181; BP diastolic 28–61; PULSE 58–97; RESP 16–29; O2SAT 94–99
[~2017-01-02] VITALS: Ht 172.7 cm; Wt 87.9 kg
[~2017-01-02 09:52] MED LIST changes: -ALBU18HF INH; +CLOP75TA28 PO; -METO-272 PO; +METO-369 PO
--- NOTE | 2017-01-02 09:58 | ED.REPORT ---
HPI-Chest Pain 40 and Over Date of Service Jan 02, 2017 ED Provider: Marty Liu MD The pt is a 81 y/o male w/ a hx of CAD, diabetes, HTN, hyperlipidemia, A-fib, and a cardiac catheterization presenting to the ED c/o SOB onset two weeks ago. The SOB is worse w/ activity and when he lays down to sleep at night. The pt also experiences L arm paresthesia when he experiences the episodes of SOB. He is also experiencing generalized, constant chest tightness. Denies fevers, cough, or vomiting. The pt was prescribed 10 mg of Furosemide by Dr. Shearer after a cardiac catheterization two months ago, but he reports being unable to olive picker the prescription. He takes a daily aspirin. He also had a recent echocardiogram taken which showed no signs of heart failure. He also reports experiencing L arm paresthesia when he had stents placed in the . Code status discussed: DNR/DNI Nursing Notes Stated Complaint: SOB/CHEST PAIN Chief Complaint: SOB Nursing Notes Reviewed: Yes Allergies: Coded Allergies: No Known Allergies (Verified , 01/02/17) Scheduled Aspirin (Aspirin) 81 Mg Tablet 81 MG PO DAILY Atorvastatin (Lipitor) 80 Mg Tablet 80 MG PO DAILY Clopidogrel (Clopidogrel) 75 Mg Tablet 75 MG PO DAILY Lisinopril (Lisinopril) 20 Mg Tablet 20 MG PO DAILY Metformin (Metformin) 500 Mg Tablet 500 MG PO DAILY Metoprolol Succinate ER (Metoprolol Succinate ER) 50 Mg Tab.er.24h 25 MG PO DAILY Tamsulosin ER (Tamsulosin ER) 0.4 Mg Cap.er.24h 0.4 MG PO DAILY Warfarin Sodium (Jantoven) 2.5 Mg Tablet 2.5 MG PO Wed Warfarin Sodium (Jantoven) 5 Mg Tablet 5 MG PO M,T, Th, F, S, S General Time Seen by MD: 09:54 Chief Complaint Shortness of breath Hx Obtained From: Patient, Spouse Arrived By: Walk-in Sudden in Onset?: Yes Onset Occurred: More than a week ago... (2 weeks) Symptom Duration: Since onset Recent Healthcare: No recent hospitalization, Recent doctor visit Similar Sx Previous: Yes Past Medical History Past Medical History Notes: Stress test done Dec or Jan 2016 Code status: DNR/DNI Past Medical History Prostate cancer A-fib Reports: Coronary artery disease, Diabetes mellitus, Hyperlipidemia, Hypertension Past Surgical History Stent placed in Aortic value replacement Bypass surgery Cardiac cath in October of 2016 Smoking History Unknown if Ever Smoker Social History Other Social History: Good social support, Ambulatory Status Independent Review of Systems + L arm paresthesia + Chest tightness Constitutional: Denies: Fever Respiratory: Reports: Shortness of breath, Denies: Non-productive cough GI: Denies: Vomiting Complete sys rev & neg: except as marked. Physical Exam Initial Vital Signs Vital Signs (First) Date Time Temp Pulse Resp B/P Pulse Ox O2 Delivery O2 Flow Rate FiO2 01/02/17 09:55 36.8 97 29 181/46 99 Room Air Initial VS: Reviewed Head / Eyes: Atraumatic, Normocephalic, PERRL ENT: Mucous membranes moist, Conjunctiva normal, No scleral icterus Neck: Supple, Non-tender, Full range of motion Skin: Warm, Dry, No cyanosis Neurologic: Alert, Oriented, Nonfocal Psychiatric: Mood/affect normal, Behavior normal, Normal thought content General/Constitutional: Awake, Alert Respiratory / Chest: Atraumatic, Breath sounds NL, Breath sounds = bilat Cardiovascular: Heart rate NL, Regular rhythm Holosystolic murmur at left upper sternal border Trace bilateral LE edema Abdomen: Atraumatic, Soft, Non-tender Interpretation & Diagnostics Lab Results Interpretation Result Diagram: 01/02/17 1015 01/02/17 1015 Test 01/02/17 10:15 White Blood Count 6.0th/mm3 (3.8-10.1) Red Blood Count 3.89mil/mm3 (4.40-5.80) Hemoglobin 13.0g/dL (13.8-17.2) Hematocrit 38.0% (41.0-50.0) Mean Corpuscular Volume 97.7fL (81-100) Mean Corpuscular Hemoglobin 33.4pg (27.0-35.0) Mean Corpuscular Hemoglobin Concent 34.2% (32.0-37.0) Red Cell Distribution Width 13.4% (12.3-15.4) Platelet Count 107bil/L (150-400) Neutrophils (%) (Auto) 69.6% (40-74) Lymphocytes (%) (Auto) 19.9% (14-46) Monocytes (%) (Auto) 9.5% (4-12) Eosinophils (%) (Auto) 0.5% (0-5) Basophils (%) (Auto) 0.2% (0-3) Prothrombin Time 37.4sec (8.1-12.5) Prothromb Time International Ratio 3.41ratio Sodium Level 138mEq/L (134-144) Potassium Level 4.8mEq/L (3.5-5.2) Chloride Level 101mEq/L (97-108) Carbon Dioxide Level 23mmol/L (18-29) Blood Urea Nitrogen 15mg/dL (8-27) Creatinine 0.84mg/dL (0.76-1.27) Estimat Glomerular Filtration Rate 93mL/min (>59) Glucose Level 170mg/dL (60-99) Calcium Level 9.0mg/dL (8.5-10.1) Total Bilirubin 1.0mg/dL (0.0-1.2) Aspartate Amino Transf (AST/SGOT) 24U/L (0-50) Alanine Aminotransferase (ALT/SGPT) 20U/L (0-44) Alkaline Phosphatase 84U/L (25-160) Troponin T 0.010ug/L (0.0-0.011) Pro-B-Type Natriuretic Peptide 2022pg/mL (0-486) Total Protein 6.9g/dL (6.4-8.4) Albumin 4.2g/dL (3.4-5.0) Hold May Top Tube Received (Received) ECG Interpretation ECG Interpretation: Rate 95 A-fib Q waves V1-V3, no other ST changes Unchanged from old Time: 10:03 Interpreted by: ED physician X-Ray Chest Interpretation Chest Xray Interpretation: IMPRESSION: Right basilar pulmonary opacities with likely small associated pleural effusion may represent atelectasis or early infection. Dictated by: Preet Romero M.D. on 01/02/2017 at 10:50 Approved by: Preet Romero M.D. on 01/02/2017 at 10:51 View: Portable, 1 view Interpretation / Wet Read by: Interpret - Radiologist Re-Eval/Medical Decision Med Decision/Clinical Course 81-year-old male Hx of fibrillation on Coumadin, CAD with stents presenting with exertional dyspnea and orthopnea for 2 weeks. He also reports left arm tingling intermittent for the past 4 days. He reports this is the same sensation he had when he had his first stents placed 20 years ago and the same pain he had before having a balloon angioplasty by Dr. Sibley 2 months ago. It had resolved after the balloon angioplasty 2 months ago then resumed 4 days ago. Chest pain resolved here. Patient with 5 beats of nonsustained ventricular tachycardia is symptomatic. Discussed with cardiology will admit for ACS rule out monitoring. Will not heparinize as is supratherapeutic INR on warfarin. Also likely with CHF component as cause for exertional dyspnea and orthopnea with elevated BNP one dose of furosemide given in the ED. Source of Hx: Old records Time of Eval: 11:59 Re-Evaluation/Progress Note: Pt rechecked. The pt's arm tingling has diminished. Informed pt of need for admission. Pt understands and agrees with plan for admission. All questions addressed. Code status discussed: DNR/DNI Consultation #1: Referral / Consult Name: Brigitte Hummel MD Consulted With: Cardiology Call Returned at: 12:01 Note: Discussed pt's case w/ Dr. Sinha who agress w/ plan for admit and agrees to no Heparization because the pt is on Warfarin. Consultation #2: Referral / Consult Name: Chad Butler MD Consulted With: Hospitalist Call Returned at: 12:13 Glycerin Supervisor: Will see patient, Agrees with eval, Agrees with plan, Accepts admit Consultation #3: Referral / Consult Name: Brigitte Hummel MD Consulted With: Cardiology Call Returned at: 15:05 Note: Discussed pt's case. Counseled Regarding: Diagnosis, Lab results, Need for admission Discharge & Departure Primary Impression: Chest pain Chest pain type: unspecified Qualified Code: R07.9 - Chest pain, unspecified Additional Impressions: CHF exacerbation Congestive heart failure type: unspecified congestive heart failure type Qualified Code: I50.9 - Heart failure, unspecified Nonsustained ventricular tachycardia Disposition: ADMITTED TO HOSPITAL Discharge Condition All VS Reviewed: Yes Condition: Stable Referrals: Ramana Gustafson DO (PCP) Crit Care Except Billable Proc Time Spent: 30-74 minutes (30 minutes ) Services Performed: Patient management by me, Time spent at bedside, Reviewing test results, Reviewing imaging, Discussing patient care, Documentation in record, Time with fam/surrogate Scribe Attestation Portions of this note were transcribed by Richy Rincon. I, Dr. Liu personally performed the history, physical exam and medical decision-making; I reviewed and confirmed the accuracy of the information in the transcribed note. copies to: Ramana Gustafson Ben M MD Jan 02, 2017 09:58 Richy Rincon Jan 02, 2017 10:46
[2017-01-02 10:21] LABS: BASOPHILS % (AUTO) 0.2 % (0-3); EOSINOPHILS % (AUTO) 0.5 % (0-5); MONOCYTES % (AUTO) 9.5 % (4-12); Mean Corpuscular Hemoglobin 33.4 pg (27.0-35.0); Mean Corpuscular Volume 97.7 fL (81-100); NEUTROPHILS % (AUTO) 69.6 % (40-74); Platelet Count 107 bil/L (150-400)
--- NOTE | 2017-01-02 10:53 | DRSVH ---
PROCEDURE: X-RAY CHEST ONE VIEW, PORTABLE ([id number]) INDICATIONS: shortness of breath , cp TECHNIQUE: One view of the chest was acquired. COMPARISON: [facility], CR, XR CHEST 1VW (PORTABLE), 09/06/2016, 8:54. FINDINGS: Surgical changes and devices: Sternotomy with mediastinal postoperative changes. Lungs and pleura: No pneumothorax. Right basilar pulmonary opacities with likely small associated pl eural effusion.. Mediastinum: Mediastinal contours appear normal. Heart size is normal. Bones and chest wall: No suspicious bony lesions. Overlying soft tissues appear unremarkable. IMPRESSION: Right basilar pulmonary opacities with likely small associated pleural effusion may represent atelect asis or early infection. Dictated by: Preet Romero M.D. on 01/02/2017 at 10:50 Approved by: Preet Romero M.D. on 01/02/2017 at 10:51
[2017-01-02 10:55] LABS: INR 3.41 ratio
[2017-01-02 11:02] LABS: TROPONIN T 0.01 ug/L (0.0-0.011)
[2017-01-02] MEDS ORDERED: Furosemide 10 mg/mL 2 mL Inj IVPUSH ONE (12:20)
[2017-01-02] MEDS ORDERED: Ondansetron 2 mg/mL 2 mL Inj IVPUSH PRN ×2 (12:20→15:05)
[2017-01-02] MEDS ORDERED: Alum-Mag Hydrox-Simeth 30 mL Suspension PO PRN ×2 (12:20→15:05)
[2017-01-02 14:42] LABS: APPEARANCE,URINE HAZY (CLEAR,HAZY); COLOR,URINE STRAW (YELLOW); OCCULT BLOOD,URINE MODERATE (NEGATIVE); PH,URINE 5.5 (5.0-8.0); UROBILINOGEN,URINE NORMAL (NORMAL)
[2017-01-02] MEDS ORDERED: Polyethylene Glycol (PEG) 17 Gm Powder PO PRN (15:05)
--- NOTE | 2017-01-02 15:20 | NUR ---
admission note Report received from ED RN. Patient arrived to room 2026 via gurney. Pt oriented to room, use of call light. Policies and procedure explained. Patient verbalized understanding. Pt alert and oriented to self place and time. Pt denies c/p or chest pressure at this time. stating numbness to left arm is gone. Assessment and vitals charted. Ongoing care.
[2017-01-02 15:49] LABS: Magnesium 1.8 mg/dL (1.6-2.6)
[2017-01-02] MEDS ORDERED: Furosemide 10 mg/mL 4 mL Inj IVPUSH ONE (17:30)
--- NOTE | 2017-01-02 18:14 | PCM.HPMED ---
Subjective Date of Service Jan 02, 2017 Primary Provider: Admitting Physician: Chad Butler MD Primary Care Physician: Ramana Gustafson DO Attending Physician: Chad Butler MD Admit Status: From the Emergency Department Chief Complaint: shortness of breath and chest tightness History of Present Illness: Patient is an 81 yr old male with past medical history significant for CAD s/p CABG and multiple stent placements, prosthetic aortic valve, atrial fibrillation on warfarin, hypertension, hyperlipidemia, and diabetes mellitus type 2 who presents to the ED with complaints of SOB and intermittent chest tightness that started about 2 weeks ago. He states that over the past 2 weeks, his SOB has been getting progressively worse. In the past, he notes that he normally has dyspnea with extreme exertion such as walking up inclines . However , more recently, he states that he has SOB even with walking on level ground for about 30 yards. He reports orthopnea and paroxysmal nocturnal dyspnea. Patient also reports occasional chest tightness that has been more pronounced over the past week. He states that his tightness is substernal and does not radiate elsewhere. It usually lasts couple hours and resolves. Moreover, he notes paresthesias and tingling of his left hand whenever he is short of breath. He has similar episodes in the past and based on outpatient clinic records, this is likely an anginal equivalent. He says he was prescribed 10 mg Lasix by his district adviser, Dr. Sibley, after his cardiac catheterization in October but patient never got it filled. He states that his chest tightness, SOB, and left hand parasthesia has resolved since he has been in the ED. On ROS, patient denies fevers, chills, headaches, visual changes, nausea, vomiting, abdominal pain, and dysuria. He notes constipation that is unchanged from baseline. He also describes claudication with prolonged activities. He states that he gets lower extremity cramps whenever he walks for too long or exerts himself. Patient had a recent cardiac catheterization on 10/22/16 which showed in-stent restenosis affecting the principal diagonal which was dilated with balloon angioplasty. He had an ECHO on 09/06/2016 which showed an EF of 60-65%. In the ED, Vital signs were as follows: Temp 36.8, HR 97, RR 29, BP 181/46 and 99% O2 sat on RA. EKG showed A Fib with rate of 95, Q waves in V1-V3 and with some nonspecific ST-T changes. Initial troponin 0.010. Pro BNP 2021. CXR shows Right basilar pulmonary opacities with likely small associated pleural effusion may represent atelectasis or early infection. Patient was given 20 mg IV Lasix and is admitted for ACS rule out and management of likely CHF. Review of Systems: The comprehensive review of systems was conducted with the patient and found to be negative except as above in the history of present illness. Allergies Coded Allergies: No Known Allergies (Verified , 01/02/17) Home Medications Aspirin (Aspirin) 81 Mg Tablet 81 MG PO DAILY Atorvastatin (Lipitor) 80 Mg Tablet 80 MG PO DAILY Clopidogrel (Clopidogrel) 75 Mg Tablet 75 MG PO DAILY Lisinopril (Lisinopril) 20 Mg Tablet 20 MG PO DAILY Metformin (Metformin) 500 Mg Tablet 500 MG PO DAILY Metoprolol Succinate ER (Metoprolol Succinate ER) 50 Mg Tab.er.24h 25 MG PO DAILY Tamsulosin ER (Tamsulosin ER) 0.4 Mg Cap.er.24h 0.4 MG PO DAILY Warfarin Sodium (Jantoven) 2.5 Mg Tablet 2.5 MG PO Wed Warfarin Sodium (Jantoven) 5 Mg Tablet 5 MG PO M,T, Th, F, S, S PMH CAD s/p CABG and multiple stent placements prosthetic aortic valve atrial fibrillation on warfarin hypertension hyperlipidemia diabetes mellitus type 2 Prostate cancer s/p radiation Surgical History Stent placed in Aortic value replacement Bypass surgery Cardiac cath in October of 2016 Family History Family hx is significant for cardiovascular disease Social History Hx Alcohol Use: Yes Alcoholic Drinks Per Day: 1-2 drinks per day Hx Substance Use: No Hx Tobacco Use: No Smoking Status: Unknown if Ever Smoker Living Arrangement: with Family Exam Vital Signs Vital Sign - Last Date Time Temp Pulse Resp B/P Pulse Ox O2 Delivery O2 Flow Rate FiO2 01/02/17 15:22 36.8 70 22 168/58 98 Room Air Exam General: Patient is sitting comfortably on bed, AAOX3, not in acute distress, cooperative and pleasant. HEENT: head normocephalic and atraumatic, PERRLA, EOMI, no scleral icterus, noninjected conjunctiva Neck: neck supple, non-tender, no lymphadenopathy, trachea midline, no JVD CV: irregularly irregular rate and rhythm, s1 and s2 heard, radial pulses equal bilaterally, pedal pulses difficult to palpate, no rubs or gallops, 1+ pitting edema of LE Lungs: mildly coarse breath sounds on lung bases bilaterally, no wheezes, rales or rhonchi, no increased work of breathing Abdomen: normoactive bowel sounds on 4Q, soft, non-distended, non-tender to palpation, no organomegally, Skin: warm and dry Musculoskeletal: 5/5 UE and LE strength bilaterally, full ROM bilaterally Neuro: Grossly neurologically intact, cranial nerves II through XII intact, no dyskinesia, dysmetria, sensation intact in extremities Psych: Normal mood and affect Lab and Diagnostics Labs Laboratory Tests Test 01/02/17 10:15 01/02/17 14:28 01/02/17 16:12 White Blood Count 6.0th/mm3 (3.8-10.1) Red Blood Count 3.89mil/mm3 (4.40-5.80) Hemoglobin 13.0g/dL (13.8-17.2) Hematocrit 38.0% (41.0-50.0) Mean Corpuscular Volume 97.7fL (81-100) Mean Corpuscular Hemoglobin 33.4pg (27.0-35.0) Mean Corpuscular Hemoglobin Concent 34.2% (32.0-37.0) Red Cell Distribution Width 13.4% (12.3-15.4) Platelet Count 107bil/L (150-400) Neutrophils (%) (Auto) 69.6% (40-74) Lymphocytes (%) (Auto) 19.9% (14-46) Monocytes (%) (Auto) 9.5% (4-12) Eosinophils (%) (Auto) 0.5% (0-5) Basophils (%) (Auto) 0.2% (0-3) Prothrombin Time 37.4sec (8.1-12.5) Prothromb Time International Ratio 3.41ratio Sodium Level 138mEq/L (134-144) Potassium Level 4.8mEq/L (3.5-5.2) Chloride Level 101mEq/L (97-108) Carbon Dioxide Level 23mmol/L (18-29) Blood Urea Nitrogen 15mg/dL (8-27) Creatinine 0.84mg/dL (0.76-1.27) Estimat Glomerular Filtration Rate 93mL/min (>59) Glucose Level 170mg/dL (60-99) Calcium Level 9.0mg/dL (8.5-10.1) Magnesium Level 1.8mg/dL (1.6-2.6) Total Bilirubin 1.0mg/dL (0.0-1.2) Aspartate Amino Transf (AST/SGOT) 24U/L (0-50) Alanine Aminotransferase (ALT/SGPT) 20U/L (0-44) Alkaline Phosphatase 84U/L (25-160) Troponin T 0.010ug/L (0.0-0.011) Pro-B-Type Natriuretic Peptide 2022pg/mL (0-486) Total Protein 6.9g/dL (6.4-8.4) Albumin 4.2g/dL (3.4-5.0) Thyroid Stimulating Hormone (TSH) 1.920uIU/mL (0.450-4.500) Hold May Top Tube Received (Received) Urine Color Straw (YELLOW) Urine Appearance Hazy (CLEAR,HAZY) Urine pH 5.5 (5.0-8.0) Urine Specific [place] 1.010 (1.003-1.035) Urine Protein Negativemg/dL (NEG,TRACE) Urine Glucose (UA) Negativemg/dL (NEGATIVE) Urine Ketones Negativemg/dL (NEGATIVE) Urine Occult Blood Moderate (NEGATIVE) Urine Nitrite Negative (NEGATIVE) Urine Bilirubin Negative (NEGATIVE) Urine Urobilinogen Normalmg/dL (NORMAL) Urine Leukocyte Esterase Trace (NEGATIVE) Urine RBC 11-50/hpf (0-2) Urine WBC 0-5/hpf (0-5) Urine Epithelial Cells Occasional/hpf (NONE-MOD) Urine Crystals None seen (NONE SEEN) Urine Bacteria None/hpf (NONE-FEW) Urine Hyaline Casts None/lpf (NONE) Urine Granular Casts None seen (NONE SEEN) Urine Waxy Casts None seen (NONE SEEN) Urine Red Blood Cell Casts None seen (NONE SEEN) Urine White Blood Cell Casts None seen (NONE SEEN) Urine Mucus None seen (None Seen) Urine Trichomonas None seen (NONE SEEN) Urine Yeast None (NONE SEEN) Urinalysis Comment None Urine Culture Reflexed Not indicated Result Diagram: 01/02/17 1015 01/02/17 1015 X-Rays, CTs and MRIs PROCEDURE: X-RAY CHEST ONE VIEW, PORTABLE ([id number]) IMPRESSION: Right basilar pulmonary opacities with likely small associated pleural effusion may represent atelectasis or early infection. Dictated by: Preet Romero M.D. on 01/02/2017 at 10:50 12-lead ECG Rate 95 A-fib Q waves V1-V3, non specific ST-T changes Unchanged from old Cardiac Echo Impressions Study Date: 09/06/2016 Height: 68 in Hospital Exam Location: [facility] Weight: 204 lb Gender: Male BSA: 2.1 m2 : 1935 Age: 81 yrs BP: 155/67 mmHg Reason For Study: Chest pain Ordering Physician: Performed By: Enedelia Roman [facility] Interpretation Summary 1. Normal left ventricular size, wall thickness and systolic function with an estimated EF of 60-65% 2. Mildly dilated right ventricle with low normal systolic function. 3. 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 Compared to the previous study (images/report reviewed), the atria are more dilated Additional Diagnostics: Cardiac Catheterization: IMPRESSION: 1. Evidence for high-grade affecting the principal diagonal. This appears to be an area of in-stent restenosis. It is not clear how chronic this is. This was dilated with balloon angioplasty. There appears to be some benefit after balloon angioplasty, but it was clearly a resistant stenosis. 2. Evidence for at least moderate stenosis affecting the mid circumflex artery is eccentric. 3. No significant disease affecting the left anterior descending artery. 4. The right coronary has serial stenoses, however it has a widely patent graft filling the PDA which does retrograde fill the extension branch. There is a stenosis in the beginning of the extension branch which appears in the range of 60%. Maru Sibley MD 10/15/16 [id number] <Electronically signed by Maru Sibley MD> 10/22/16 8752 Assessment & Plan Patient is an 81 yr old male with past medical history significant for CAD s/p CABG and multiple stent placements, prosthetic aortic valve, atrial fibrillation on warfarin, hypertension, hyperlipidemia, and diabetes mellitus type 2 who presents to the ED with complaints of SOB and intermittent chest tightness that started about 2 weeks ago. He is being admitted for ACS rule out and management of likely CHF. Dyspnea likely secondary to Acute Congestive Heart Failure, present on admission , under investigation -Patient reports worsening SOB, orthopnea and PND -CXR reveals right basilar pulmonary opacities with likely small associated pleural effusion may represent atelectasis or early infection -BNP elevated at 2021 -ECHO on 09/2016 showed Normal left ventricular size, wall thickness and systolic function with an estimated EF of 60-65% -Patient has a prosthetic aortic valve -Patient was given 20 mg IV Lasix in the ED -Per recommendations of cardiology, give 40 mg IV Lasix this evening -Ordered repeat ECHO for the am -Strict I's and O's and Daily weights Unstable Angina, present on admission, under investigation -Possibly ischemic in etiology. -Nitro and Morphine prn for chest pain -Initial troponin 0.010. Continue to trend q6h -EKG shows A fib with Rate 95 , Q waves V1-V3, non-specific ST-T changes -EKG as needed for Chest pain -npo after midnight for possible cardiac cath. However, given patient's INR of 3.41, this might not be postponed -Per Cardiology, no need to start heparin cardiac protocol at this time as patient is on warfarin with supratherapeutic INR -Once INR drops to less than 2.5, will start IV heparin as we have to hold Coumadin in case Dr. Drake decides to repeat left heart catheterization. --Monitor Patient on Telemetry Coronary Artery Disease s/p CABG and multiple stent placements -Continue ASA and Clopidogrel (Clopidogrel) 75 Mg Tablet 75 MG PO DAILY -Continue Atorvastatin (Lipitor) 80 Mg Tablet 80 MG PO DAILY Chronic Atrial fibrillation, present on admission, ongoing -Patient's EKG shows A fib with HR 97 -Continue metoprolol succinate 25 mg -Hold Warfarin as patient's INR is 3.41 -Recheck INR in am -Ordered TSH -Monitor Patient on Telemetry Hypertension, present on admission, chronic -Continue Lisinopril (Lisinopril) 20 Mg Tablet 20 MG PO DAILY -Continue metoprolol succinate 25 mg Hyperlipidemia, chronic -Continue Atorvastatin (Lipitor) 80 Mg Tablet 80 MG PO DAILY Diabetes mellitus type 2, chronic -Hold metformin -Ordered HgbA1c -Ordered Lispro correctional scale History of Prostate cancer s/p radiation -Continue Tamsulosin Patient Status: Patient is admitted under inpatient status expected length of stay greater than 2 midnights due to severity of presenting symptoms, risk of adverse events, and complexity of treatment plan. Code Status: DNR/ DNI. This was discussed with the patient Pain Evaluation: Adequate Pain Control GI Prophylaxis: H2 peter VTE Prophylaxis: Theraputic Anticoag with Warfarin, Other (patient on warfarin with supratherapeutic INR) Resuscitation Status: DNR/DNI:Do Not Resuscitate/Intubate Attending Statement The patient was seen and examined together with Dr. Hicks on 01/02/2017 and I agree with the history, exam and plan as outlined in the note above. . copies to: Ramana Gustafson Alexa N DO Jan 02, 2017 15:37 Chad Butler MD Jan 03, 2017 07:58
[2017-01-02] MEDS ORDERED: Glucose 40% Oral Gel 15 Gm Tube PO PRN (18:15)
--- NOTE | 2017-01-02 18:15 | CONS ---
[address] [address] CONSULTATION REPORT PATIENT: CASTILLO VAZQUEZ : 1935 MR#: [id number] ADMIT: 01/02/2017 JOB ID: [id number] DATE OF SERVICE: 01/02/2017 REASON FOR CARDIOLOGY CONSULT: ER physician, Dr. Marty Liu asked me to see this patient regarding angina equivalent, CHF, shortness of breath. CHIEF COMPLAINT: Worsening shortness of breath from last two weeks as well as recurrent tingling in the left hand. PRESENT HISTORY: This 81-year-old, pleasant male who has a history of 23 mm Nielson II bioprosthetic aortic valve replacement and SVG graft to RCA in July 2005, history of chronic AFib, on anticoagulation, essential hypertension, obstructive sleep apnea, obesity, type 2 diabetes mellitus, hyperlipidemia, got admitted because of above-mentioned chief complaint. From last couple of months, the patient has been seen by Dr. Sibley. In the past, he used to see Dr. Drake as well. According to him, his anginal symptoms include left hand tingling, as well as exertional shortness of breath. In October 2016, he underwent left heart catheterization by Dr. Sibley for similar symptoms. At that time, left main did not have any significant disease. LAD itself does not have any critical disease. However, the principal diagonal vessel has high grade in-stent restenoses in the proximal portion for which he underwent balloon angioplasty. There was moderate mid circumflex disease, as well as moderate disease in the right coronary artery. However, SVG graft to PDA was patent. There was retrograde filling of the PLV branch and PLV branch has moderate disease at the ostium and proximal portion. After balloon angioplasty of the diagonal branch, his symptoms got improved. However, from last two weeks, he started having similar symptoms. He started getting exertional shortness of breath which is progressively getting worse. Now, he gets shortness of breath on mild to moderate exertion. He is also getting recurrent exertion tingling in the left hand from last few days, which gets associated with exertional shortness of breath. Sometimes he gets PND-like symptoms as well. He has chronic lower extremity swelling. Denies any fever, chills, or new skin rash. No stroke-like symptoms. He is compliant with his medication except that he was supposed to take Lasix, but from last couple of weeks, he is not taking it. His last echocardiogram was in September 2016. At that time, LV ejection fraction was 60% to 65% with mild to moderate AR. He had a 24-hour Holter monitor on November 11, 2016. The patient was in persistent AFib with average heart rate 65, minimum 34 during sleep and maximum 123. Patient has history of sleep apnea and uses CPAP. PAST MEDICAL HISTORY: History of bioprosthetic aortic valve replacement with 23 mm Nielson valve in July 2005 with single-vessel bypass surgery including SVG graft to RCA, coronary artery disease, status post left heart catheterization October 2016 which revealed patent SVG graft to PDA and other lesions as stated above, chronic AFib, on anticoagulation, type 2 diabetes mellitus, essential hypertension, hyperlipidemia, obstructive sleep apnea, periodic limb movement, history of incomplete emptying of bladder, microscopic hematuria, lower extremity swelling. PAST SURGICAL HISTORY: As stated above. ALLERGIES: No known allergies. SCHEDULED MEDICATION: 1. Aspirin 81 mg daily. 2. Atorvastatin 80 mg daily. 3. Plavix 75 mg daily. 4. Lisinopril 20 mg daily. 5. Metformin 500 mg daily. 6. Metoprolol succinate 50 mg tablet, 25 mg daily. 7. Tamsulosin ER 0.4 mg daily. 8. Warfarin. SOCIAL HISTORY: Denies any current tobacco abuse, alcohol abuse. FAMILY HISTORY: Positive for coronary artery disease. REVIEW OF SYSTEMS: Ten-point review of systems was obtained and negative except as stated above. PHYSICAL EXAMINATION: Blood pressure 160/58, heart rate 70, irregular, respiratory rate 20, oxygen saturation 98%. HEENT: No significant jaundice. Positive hepatojugular reflux. Chest: Bilateral basal crepitations. CVS: S1 variable, P2 appears prominent. Grade 2/6 ejection systolic murmur at the aortic area and the base as well as grade 2/6 early diastolic murmur along left parasternal area. Abdomen obese. No obvious pulsatile mass. No obvious hepatosplenomegaly. Extremities: Mild bilateral pedal edema. Vascular: No evidence of critical limb ischemia. ASH WORKER: Alert, oriented to time, place, and person. LABORATORY: WBC 6.0, hemoglobin 13, platelets 107, polymorphs 69.6. INR 3.41. Sodium 138, potassium 4.8, BUN 15, creatinine 0.84. Magnesium 1.8. Troponin T 0.010 and 0.010. ProBNP 2021. WBC 6.0, hemoglobin 13, platelets of 107. Polymorphs 69.6. X-ray chest: Right basilar opacities with small associated pleural effusion. Heart size is reported to be normal. On September 07, 2016, patient had exercise perfusion study. There was mild ischemia of inferolateral wall. EKG: Today in the ED revealed atrial fibrillation with ventricular rate about 95 with poor R-wave progression, which is old, with some nonspecific ST-T changes. QTc 458 msec. ASSESSMENT AND PLAN: Subacute congestive heart failure with possibility of diastolic heart failure with angina equivalent symptoms with known history of coronary artery disease, status post balloon angioplasty of the major diagonal branch in-stent restenosis in October 2016, at least moderate disease based on the report of mid circumflex as well as ostial to proximal posterolateral branch of the right coronary artery with retrograde filling from the SVG graft to PDA. I reviewed his left heart catheterization film. The mid circumflex artery in some views appears to be tight with significant calcification. At this point of time. Will get 2D echo to make sure the aortic regurgitation is not getting worse, as well as rule out other significant structural heart disease. I will ask our farm mechanic, Dr. Drake, to review his left heart catheterization film and see what we can do to take care of circumflex lesion. His INR is supratherapeutic. Will hold warfarin. He was not taking Lasix. That may be one of the triggers for worsening congestive heart failure. Will start him on IV Lasix and will give 40 mg Lasix tonight. Meanwhile, for AFib will recommend continuation of rate control approach. Once INR drops to less than 2.5, will start IV heparin as we have to hold Coumadin in case Dr. Drake decides to repeat left heart catheterization. Discussed the plan with the patient. He agrees and concurs. Discussed the plan with the hospitalist team as well. Cardiology service will continue to follow this patient. Thanks for the Cardiology consult. Total time spent today reviewing his old records, at least 70 minutes.
[2017-01-02] MEDS: Insulin LISPRO 300 Unit/3 mL Inj SUBQ SCH ×2 (18:25→22:00)
[2017-01-02] MEDS ORDERED: Dextrose 10% 250 ML IV PRN (18:30)
[2017-01-02] MEDS: MeTOProlol XL 50 mg ER24 Tablet PO SCH (18:42)
[2017-01-03] VITALS (8 sets, daily range): BP systolic 119–152; BP diastolic 46–71; PULSE 59–79; RESP 16–22; O2SAT 95–98
[2017-01-03 03:45] LABS: BASOPHILS % (AUTO) 0.2 % (0-3); EOSINOPHILS % (AUTO) 1.1 % (0-5); MONOCYTES % (AUTO) 12.1 % (4-12); Mean Corpuscular Hemoglobin 33.3 pg (27.0-35.0); NEUTROPHILS % (AUTO) 69.3 % (40-74); Platelet Count 112 bil/L (150-400)
[2017-01-03 04:05] LABS: INR 2.85 ratio
[2017-01-03 04:11] LABS: Magnesium 1.7 mg/dL (1.6-2.6)
--- NOTE | 2017-01-03 06:36 | NUR ---
Status Update Pt has been NPO since midnight. Pt continues to have no chest pain or tingling/numbness in his left arm. Pt's INR is 2.86 so pt has not made it to the goal INR of 2.5. Pt has been independent in the room and VSS.
[2017-01-03] MEDS: Insulin LISPRO 300 Unit/3 mL Inj SUBQ SCH ×4 (08:00→22:00)
[2017-01-03] MEDS: MeTOProlol XL 50 mg ER24 Tablet PO SCH (08:45)
--- NOTE | 2017-01-03 09:16 | PCM.PNMED ---
Subjective Date of Service Jan 03, 2017 Subjective Patient is an 81 yr old male with past medical history significant for CAD s/p CABG and multiple stent placements, prosthetic aortic valve, atrial fibrillation on warfarin, hypertension, hyperlipidemia, and diabetes mellitus type 2 who presents to the ED with complaints of SOB and intermittent chest tightness that started about 2 weeks ago. He was admitted for ACS rule out and management of likely subacute CHF. Patient was seen and examined by me this morning. He states that he feels better overall compared to yesterday. He notes that he continues to have SOB when returns from the bathroom and lays down on bed but this resolves with rest. He denies chest pain/tightness as well as numbness and tingling of his left hand. On ROS, patient denies headaches, visual changes, chest pain, nausea , vomiting, abdominal pain and dysuria. He mentions that he has constipation, unchanged from baseline. There were no acute events overnight. INR is 2.86 this morning. Exam Vital Signs Vital Sign - Last Date Time Temp Pulse Resp B/P Pulse Ox O2 Delivery O2 Flow Rate FiO2 01/03/17 08:28 36.7 77 22 152/63 98 Room Air Intake and Output 01/02/17 01/02/17 01/03/17 Cumulative From/Thru 15:00 23:00 07:00 01/02/17 09:55 - 01/03/17 06:07 Intake Total 0 ml 200 ml 200 ml Output Total 925 ml 650 ml 1575 ml Balance -925 ml -450 ml -1375 ml Intake Oral 0 ml 200 ml 200 ml Output Urine Total 925 ml 650 ml 1575 ml # Voids 2 1 3 Exam General: Patient is sitting comfortably on bed, AAOX3, not in acute distress, cooperative and pleasant. HEENT: head normocephalic and atraumatic, PERRLA, EOMI, no scleral icterus, noninjected conjunctiva Neck: neck supple, non-tender, no lymphadenopathy, trachea midline, no JVD CV: irregularly irregular rate and rhythm, s1 and s2 heard, radial pulses equal bilaterally, pedal pulses difficult to palpate, no rubs or gallops, trace edema of LE Lungs: faint crackles bilaterally, no wheezes, rales or rhonchi, no increased work of breathing Abdomen: normoactive bowel sounds on 4Q, soft, non-distended, non-tender to palpation, no organomegally, Skin: warm and dry Musculoskeletal: 5/5 UE and LE strength bilaterally, full ROM bilaterally Neuro: Grossly neurologically intact, cranial nerves II through XII intact, no dyskinesia, dysmetria, sensation intact in extremities Psych: Normal mood and affect IVs and Medications Medications Reviewed: Medications were reviewed in detail Lab and Diagnostics Laboratory Tests Test 01/02/17 10:15 01/02/17 14:28 01/02/17 16:12 01/02/17 22:25 White Blood Count 6.0th/mm3 (3.8-10.1) Red Blood Count 3.89mil/mm3 (4.40-5.80) Hemoglobin 13.0g/dL (13.8-17.2) Hematocrit 38.0% (41.0-50.0) Mean Corpuscular Volume 97.7fL (81-100) Mean Corpuscular Hemoglobin 33.4pg (27.0-35.0) Mean Corpuscular Hemoglobin Concent 34.2% (32.0-37.0) Red Cell Distribution Width 13.4% (12.3-15.4) Platelet Count 107bil/L (150-400) Neutrophils (%) (Auto) 69.6% (40-74) Lymphocytes (%) (Auto) 19.9% (14-46) Monocytes (%) (Auto) 9.5% (4-12) Eosinophils (%) (Auto) 0.5% (0-5) Basophils (%) (Auto) 0.2% (0-3) Prothrombin Time 37.4sec (8.1-12.5) Prothromb Time International Ratio 3.41ratio Sodium Level 138mEq/L (134-144) Potassium Level 4.8mEq/L (3.5-5.2) Chloride Level 101mEq/L (97-108) Carbon Dioxide Level 23mmol/L (18-29) Blood Urea Nitrogen 15mg/dL (8-27) Creatinine 0.84mg/dL (0.76-1.27) Estimat Glomerular Filtration Rate 93mL/min (>59) Glucose Level 170mg/dL (60-99) Hemoglobin A1c 5.9% (4.8-5.6) Calcium Level 9.0mg/dL (8.5-10.1) Magnesium Level 1.8mg/dL (1.6-2.6) Total Bilirubin 1.0mg/dL (0.0-1.2) Aspartate Amino Transf (AST/SGOT) 24U/L (0-50) Alanine Aminotransferase (ALT/SGPT) 20U/L (0-44) Alkaline Phosphatase 84U/L (25-160) Troponin T 0.010ug/L (0.0-0.011) < 0.010ug/L (0.0-0.011) 0.010ug/L (0.0-0.011) Pro-B-Type Natriuretic Peptide 2022pg/mL (0-486) Total Protein 6.9g/dL (6.4-8.4) Albumin 4.2g/dL (3.4-5.0) Thyroid Stimulating Hormone (TSH) 1.920uIU/mL (0.450-4.500) Hold May Top Tube Received (Received) Urine Color Straw (YELLOW) Urine Appearance Hazy (CLEAR,HAZY) Urine pH 5.5 (5.0-8.0) Urine Specific [place] 1.010 (1.003-1.035) Urine Protein Negativemg/dL (NEG,TRACE) Urine Glucose (UA) Negativemg/dL (NEGATIVE) Urine Ketones Negativemg/dL (NEGATIVE) Urine Occult Blood Moderate (NEGATIVE) Urine Nitrite Negative (NEGATIVE) Urine Bilirubin Negative (NEGATIVE) Urine Urobilinogen Normalmg/dL (NORMAL) Urine Leukocyte Esterase Trace (NEGATIVE) Urine RBC 11-50/hpf (0-2) Urine WBC 0-5/hpf (0-5) Urine Epithelial Cells Occasional/hpf (NONE-MOD) Urine Crystals None seen (NONE SEEN) Urine Bacteria None/hpf (NONE-FEW) Urine Hyaline Casts None/lpf (NONE) Urine Granular Casts None seen (NONE SEEN) Urine Waxy Casts None seen (NONE SEEN) Urine Red Blood Cell Casts None seen (NONE SEEN) Urine White Blood Cell Casts None seen (NONE SEEN) Urine Mucus None seen (None Seen) Urine Trichomonas None seen (NONE SEEN) Urine Yeast None (NONE SEEN) Urinalysis Comment None Urine Culture Reflexed Not indicated Test 01/03/17 03:40 White Blood Count 5.4th/mm3 (3.8-10.1) Red Blood Count 3.51mil/mm3 (4.40-5.80) Hemoglobin 11.7g/dL (13.8-17.2) Hematocrit 34.4% (41.0-50.0) Mean Corpuscular Volume 98.0fL (81-100) Mean Corpuscular Hemoglobin 33.3pg (27.0-35.0) Mean Corpuscular Hemoglobin Concent 34.0% (32.0-37.0) Red Cell Distribution Width 13.4% (12.3-15.4) Platelet Count 112bil/L (150-400) Neutrophils (%) (Auto) 69.3% (40-74) Lymphocytes (%) (Auto) 17.1% (14-46) Monocytes (%) (Auto) 12.1% (4-12) Eosinophils (%) (Auto) 1.1% (0-5) Basophils (%) (Auto) 0.2% (0-3) Prothrombin Time 31.1sec (8.1-12.5) Prothromb Time International Ratio 2.85ratio Sodium Level 138mEq/L (134-144) Potassium Level 4.5mEq/L (3.5-5.2) Chloride Level 103mEq/L (97-108) Carbon Dioxide Level 24mmol/L (18-29) Blood Urea Nitrogen 17mg/dL (8-27) Creatinine 0.81mg/dL (0.76-1.27) Estimat Glomerular Filtration Rate 97mL/min (>59) Glucose Level 122mg/dL (60-99) Calcium Level 8.5mg/dL (8.5-10.1) Phosphorus Level 4.0mg/dL (2.5-4.9) Magnesium Level 1.7mg/dL (1.6-2.6) Total Bilirubin 0.8mg/dL (0.0-1.2) Aspartate Amino Transf (AST/SGOT) 20U/L (0-50) Alanine Aminotransferase (ALT/SGPT) 17U/L (0-44) Alkaline Phosphatase 71U/L (25-160) Total Protein 6.0g/dL (6.4-8.4) Albumin 3.6g/dL (3.4-5.0) Result Diagram: 01/03/1733901/03/17 034 X-Rays, CTs and MRIs PROCEDURE: X-RAY CHEST ONE VIEW, PORTABLE ([id number]) IMPRESSION: Right basilar pulmonary opacities with likely small associated pleural effusion may represent atelectasis or early infection. Dictated by: Preet Romero M.D. on 01/02/2017 at 10:50 12-lead ECG Rate 95 A-fib Q waves V1-V3, non specific ST-T changes Unchanged from old Cardiac Echo Impressions Study Date: 09/06/2016 Height: 68 in Hospital Exam Location: [facility] Weight: 204 lb Gender: Male BSA: 2.1 m2 : 1935 Age: 81 yrs BP: 155/67 mmHg Reason For Study: Chest pain Ordering Physician: Performed By[facility] Interpretation Summary 1. Normal left ventricular size, wall thickness and systolic function with an estimated EF of 60-65% 2. Mildly dilated right ventricle with low normal systolic function. 3. 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 Compared to the previous study (images/report reviewed), the atria are more dilated Additional Diagnostics Cardiac Catheterization: IMPRESSION: 1. Evidence for high-grade affecting the principal diagonal. This appears to be an area of in-stent restenosis. It is not clear how chronic this is. This was dilated with balloon angioplasty. There appears to be some benefit after balloon angioplasty, but it was clearly a resistant stenosis. 2. Evidence for at least moderate stenosis affecting the mid circumflex artery is eccentric. 3. No significant disease affecting the left anterior descending artery. 4. The right coronary has serial stenoses, however it has a widely patent graft filling the PDA which does retrograde fill the extension branch. There is a stenosis in the beginning of the extension branch which appears in the range of 60%. Maru Sibley MD 10/15/16 0434 <Electronically signed by Maru Sibley MD> 10/22/16 8559 Assessment & Plan Patient is an 81 yr old male with past medical history significant for CAD s/p CABG and multiple stent placements, prosthetic aortic valve, atrial fibrillation on warfarin, hypertension, hyperlipidemia, and diabetes mellitus type 2 who presents to the ED with complaints of SOB and intermittent chest tightness that started about 2 weeks ago. He is being admitted for ACS rule out and management of likely CHF. Hospital Day 2 Dyspnea likely secondary to Acute Congestive Heart Failure, present on admission , under investigation -Patient reports worsening SOB, orthopnea and PND -CXR reveals right basilar pulmonary opacities with likely small associated pleural effusion may represent atelectasis or early infection -BNP elevated at 2021 -ECHO on 09/2016 showed Normal left ventricular size, wall thickness and systolic function with an estimated EF of 60-65% -Patient has a prosthetic aortic valve -Patient was given 20 mg IV Lasix in the ED -Per recommendations of cardiology, gave 40 mg IV Lasix during admission -Start patient on 40 mg IV lasix Bid -Ordered repeat ECHO today. Results pending -Strict I's and O's and Daily weights -Fluid restriction Unstable Angina, present on admission, under investigation -Patient described chest tightness as well has left hand numbness/ tingling as an anginal equivalent. Possibly ischemic in etiology. -Nitro and Morphine prn for chest pain -Initial troponin 0.010. Troponin negative X3 -EKG shows A fib with Rate 95 , Q waves V1-V3, non-specific ST-T changes -EKG as needed for Chest pain -Per Cardiology, no need to start heparin cardiac protocol during admission as patient is on warfarin with supratherapeutic INR of 3.41 -Once INR drops to less than 2.5, will start IV heparin as we have to hold Coumadin in case Dr. Drake decides to repeat left heart catheterization -Will start heparin in the evening of 01/03/17 and recheck INR in the am -Monitor Patient on Telemetry Coronary Artery Disease s/p CABG and multiple stent placements -Continue ASA and Clopidogrel (Clopidogrel) 75 Mg Tablet 75 MG PO DAILY -Continue Atorvastatin (Lipitor) 80 Mg Tablet 80 MG PO DAILY Chronic Atrial fibrillation, present on admission, ongoing -Patient's EKG shows A fib with HR 97 -Continue metoprolol succinate 25 mg -Hold Warfarin as patient's INR is 3.41 -Recheck INR in am -Ordered TSH= 1.920 -Monitor Patient on Telemetry Hypertension, present on admission, chronic -Continue Lisinopril (Lisinopril) 20 Mg Tablet 20 MG PO DAILY -Continue metoprolol succinate 25 mg Hyperlipidemia, chronic -Continue Atorvastatin (Lipitor) 80 Mg Tablet 80 MG PO DAILY Diabetes mellitus type 2, chronic -Hold metformin -Ordered HgbA1c- 5.9% -Ordered Lispro correctional scale History of Prostate cancer s/p radiation -Continue Tamsulosin Code Status: DNR/ DNI. This was discussed with the patient Disposition: Continue to diurese patient today with 40 mg IV lasix bid. ECHO results pending. Start heparin drip per cardiac protocol in the evening and continue to hold warfarin in case patient undergoes cardiac cath per recommendations of cardiology. Npo at midnight. Pain Evaluation: Adequate Pain Control GI Prophylaxis: H2 peter VTE Prophylaxis: Theraputic Anticoag with Warfarin, Other (patient on warfarin with supratherapeutic INR) Resuscitation Status: DNR/DNI:Do Not Resuscitate/Intubate Attending Statement The patient was seen and examined together with Dr. Hicks on 01/03/2017 and I agree with the history, exam and plan as outlined in the note above. . Sonja Hicks DO Jan 03, 2017 09:16 Chad Butler MD Jan 04, 2017 09:21
[2017-01-03] MEDS: Furosemide 10 mg/mL 4 mL Inj IVPUSH SCH ×2 (09:30→17:56)
--- NOTE | 2017-01-03 13:11 | NUR ---
Case Management: IMM given and explained to pt. Radha ROARN
--- NOTE | 2017-01-03 16:05 | DRSVH ---
[facility] [address] [place] [address] Echocardiogram Report Name: CASTILLO VAZQUEZ HStudy Date: 01/03/2017 Height: 68 in Hospital Exam Location: [facility] Weight: 193 lb Gender: Male BSA: 2.0 m2 : 1935 Age: 81 yrs BP: 124/71 mmHg Reason For Study: Dyspnea Ordering Physician: Performed By: January Dillard Referring Physician: MD Rhoda Sibley Interpretation Summary The left ventricle is mildly dilated. This is increased compared to the previous study (4.7 cm to 6.1 cm in diameter). The ejection fraction is estimated to be 60-65%. The right ventricle is mildly dilated. Right ventricular systolic function is mildly reduced. The prosthetic aortic valve is well-seated. The prosthetic aortic valve is not well visualized. The peak aortic velocity is 3.94 m/sec. The aortic valve mean gradient is 26 mmHg. The peak aortic velocity on the previous exam was 2.65 m/sec. The calculated aortic valve area is 1.4 cm2. There is moderate aortic stenosis. Compared to the prior echo study, there has been an increase in the severity of aortic stenosis. There is moderate aortic regurgitation. Compared to the prior echo study, there has been an increase in the severity of aortic regurgitation. There is mild tricuspid regurgitation. Compared to the prior echo exam, there has been no change in TR severity. The right ventricular systolic pressure is estimated at 46 mmHg assuming a right atrial pressure of 8 mm Hg. Compared to the prior echo exam, there has been an increase in the severity of pulmonary hypertension. Procedure: A two-dimensional transthoracic echocardiogram with color flow and Doppler was performed. The study quality was technically adequate. Comparison is made with the echocardiogram of 09/06/2016. The patient was in atrial fibrillation with heart rates between 49-77 bpm during the exam. Left Ventricle: The left ventricle is mildly dilated. There is normal left ventricular wall thickness. This is increased compared to the previous study. There is no thrombus. The ejection fraction is estimated to be 60-65%. Septal motion is consistent with post-operative state. E/E' is abnormal. Right Ventricle: The right ventricle is mildly dilated. Right ventricular systolic function is mildly reduced. Atria: The left atrium is severely dilated. The left atrium has remained unchanged in size since the prior echo exam. The right atrium is severely dilated. The right atrium has remained unchanged in size since the prior echo exam. A patent foramen ovale is suspected. Mitral Valve: The mitral valve leaflets are mildly calcified. There is mild to moderate mitral annular calcification. No significant mitral valve stenosis. There is trace mitral regurgitation. Aortic Valve: The prosthetic aortic valve is not well visualized. The prosthetic aortic valve is well-seated. The peak aortic velocity is 3.94 m/sec. The aortic valve mean gradient is 26 mmHg. The peak aortic velocity on the previous exam was 2.65 m/sec. The calculated aortic valve area is 1.4 cm2. There is moderate aortic stenosis. Compared to the prior echo study, there has been an increase in the severity of aortic stenosis. There is moderate aortic regurgitation. Compared to the prior echo study, there has been an increase in the severity of aortic regurgitation. Tricuspid Valve: The tricuspid valve is not well visualized, but is grossly normal. There is mild tricuspid regurgitation. The right ventricular systolic pressure is estimated at 46 mmHg assuming a right atrial pressure of 8 mm Hg. Compared to the prior echo exam, there has been no change in TR severity. Compared to the prior echo exam, there has been an increase in the severity of pulmonary hypertension. Pulmonic Valve: The pulmonic valve leaflets are thin and pliable; valve motion is normal. There is mild to moderate pulmonic regurgitation. Great Vessels: The aortic root is normal size. The ascending aorta is normal in size. The IVC is of normal diameter and collapses less than 50% with a sniff. This suggests a right atrial pressure of 8 mm Hg. Pericardium/ Pleura There is no pericardial effusion. MMode/2D Measurements & Calculations LVIDd: 6.1 cm LVIDs: 3.4 cm LA A2 area: 24.7 cm FS: 43.7 % LA A4 area: 30.1 cm IVSd: 0.89 cm LA length (vol): 6.5 cm LVPWd: 0.93 cm LA vol: 97.2 ml LA vol index: 48.3 ml/m IVC diam: 1.9 cm RA long axis: 6.1 cm LVOT diam: 2.2 cm RA area: 23.0 cm asc Aorta Diam: 3.3 cm RA vol: 73.9 ml RA : 36.7 ml/m2 LV henry. diameter/BSA (cm/m^2): 3.0 LV sys. diameter/BSA (cm/m^2): 1.7 RVD1 (basal): 4.1 cm RVD2 (mid): 3.3 cm TAPSE: 1.6 cm Doppler Measurements & Calculations Ao V2 max: 394.0 cm/sec MV E max michael: 125.4 cm/sec Ao max P.1 mmHg Ao mean P.6 mmHg LVOT Max Michael: 138.1 cm/sec LAURA(I,D): 1.4 cm sev ratio: 0.37 AI P1/2t: 250.7 msec AI dec slope: 566.0 cm/sec2 Med Peak E' Michael: 6.8 cm/sec TR max michael: 309.2 cm/sec E/E' med: 18.3 TR max P.2 mmHg PA V2 max: 74.7 cm/sec PA mean P.92 mmHg PA Accel Time: 0.09 sec MV dec time: 0.15 sec Ao V2 mean: 234.8 cm/sec Ao V2 VTI: 78.2 cm LAURA(V,D): 1.3 cm2 LV V1 max P.7 mmHg PA V2 mean: 43.9 cm/sec LV V1 VTI: 28.7 cm LAURA indexed to BSA (cm^2/m^2): 0.68 Reading Physician:PM
[2017-01-03] MEDS ORDERED: .Epic Conversion Completed XX PRN (16:30)
[2017-01-03] MEDS ORDERED: Heparin 25K Unit/500mL 0.45 NS 25,000 UNIT in IV Premix 1 EACH IV SCH (18:25)
[2017-01-03] MEDS ORDERED: Heparin 5,000 Unit/mL Inj IVPUSH PRN (18:25)
--- NOTE | 2017-01-03 18:26 | PROG NOTE ---
[address] [address] PROGRESS NOTE PATIENT: CASTILLO VAZQUEZ : 1935 MR#: [id number] ADMIT: 01/02/2017 JOB ID: [id number] DATE: 01/03/2017 SUBJECTIVE: The patient is feeling better today. No more left arm pain or chest pain or worsening shortness of breath or PND, orthopnea. Discussed with the patient echocardiogram result. Echocardiogram today revealed mildly dilated left ventricle with LV end-diastolic diameter increased from 4.7 to 6.1 cm with LV ejection fraction 60% to 65% without any new significant wall motion abnormalities. Bioprosthetic aortic valve well seated but not well seen. The peak aortic valve velocity 3.94 m/sec and mean gradient 26. Previous aortic valve velocity 2.65. Calculated aortic valve area 1.4, at least moderate aortic stenosis. Moderate aortic regurgitation, which has gotten worse. Mild tricuspid regurgitation and pulmonary artery systolic pressure about 46 mmHg, suggestive of moderate pulmonary hypertension. OBJECTIVE: Blood pressure 145/56, heart rate 79, respiratory rate 18, oxygen saturation 96%. HEENT: Positive hepatojugular reflux. Chest: Decreased air entry with some basal crepitation. CVS: S1 variable. P2 appears prominent. Grade II/ ejection systolic murmur at the aortic area as well as early diastolic murmur at the left parasternal area. Abdomen: Obese, no obvious pulsatile mass. Extremities: Mild bilateral pedal edema. Vascular: No evidence of critical limb ischemia. [employer]: Alert, oriented to time, place, and person. TELEMETRY: AFib with controlled ventricular rate. LABORATORY DATA: Sodium 138, potassium 4.5, BUN 17, creatinine 0.81, magnesium 1.7 with normal AST, ALT. Previous serial troponin normal. Hemoglobin 11.7, platelets 112, WBC 5.4. ASSESSMENT AND PLAN: Heart failure with preserved systolic function with worsening peak aortic valve velocity across bioprosthetic aortic valve and regurgitation which appears to be at least moderate. Patient at least has moderate aortic stenosis; however the peak aortic valve velocity is reaching almost close to 4 m/sec. 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 Sibley. He also has mid circumflex lesion which appears to be tight and heavily calcified. He has chronic atrial fibrillation, essential hypertension, hyperlipidemia, diabetes mellitus, obstructive sleep apnea. He came with INR of 3.41, hence Coumadin was put on hold. He has been on aspirin and Plavix along with warfarin. As per the recent guidelines at this point of time, I will stop aspirin, however current will continue Plavix and Coumadin. I reviewed his left heart catheterization film by Dr. Gruber, who is our director. According to Dr. Gruber, percutaneous coronary intervention of mid circumflex artery is going to be high risk complicated procedure. Discussed with the patient. The plan is to consider transesophageal echocardiogram to assess his bioprosthetic aortic valve restenosis and regurgitation. Indeed if there is pathological bioprosthetic aortic valve, then it is reasonable to have him evaluated at tertiary care facility like [facility] for possible TAVR and PCI with surgical backup of that mid circumflex branch. Patient agreed and concur. Would like to do transesophageal echocardiogram Thursday with the help of Anesthesia. Meanwhile will recommend continuation of current medical therapy. Today his Lasix was increased to 40 mg twice a day and the patient is responding. TIME SPENT: Total time spent today about at least [address] minutes [address] discussion [address] Gruber as well.
--- NOTE | 2017-01-03 19:19 | NUR ---
no c/o chest pain through the day.
== END 2017-01-04 01:29 | disposition admitted as inpatient to this hospital (09) | DRG 951 ==
LOC: SED 09:52 → PCC 13:50
PROVIDERS: ADMIT Internal Medicine; ATTEND Internal Medicine
DX: R69 Illness, unspecified (principal)